=== PATIENT | male | born 1960 | race Asian ===

== ENCOUNTER 2018-09-13 22:59 | Emergency (ER) | payer OTHER ==
[~2018-09-13] VITALS: Ht 162.6 cm; Wt 59.0 kg
[2018-09-14] MEDS ORDERED: IPRATROPIUM BROM 0.5 MG/2.5ML INH SOL NEB ONE (01:00)
[2018-09-14] MEDS ORDERED: ALBUTEROL SULF 2.5 MG/0.5ML(0.5%) NEB SOLN NEB ONE (01:00)
[2018-09-14] MEDS ORDERED: PROMETHAZINE W/CODEINE 5 ML ORAL SYRUP PO ONE (01:00)
[2018-09-14 01:59] VITALS: BP 109/73
== END 2018-09-14 02:05 | disposition home or self-care (01) ==
LOC: ER 23:02
DX: J40 Bronchitis, not specified as acute or chronic (principal); J06.9 Acute upper respiratory infection, unspecified; R11.0 Nausea
CPT/HCPCS: 71046; 94640; 99283; J7611; J7644

== ENCOUNTER 2018-09-16 16:51 | Emergency (ER) | payer OTHER ==
[~2018-09-16] VITALS: Ht 162.6 cm; Wt 59.0 kg
[2018-09-16 19:02] VITALS: BP 150/85
[2018-09-16] MEDS ORDERED: methylPREDNISolone SOD SUCC 125 MG/2 ML VL IM ONE (19:15)
[2018-09-16] MEDS ORDERED: cefTRIAXone SOD 1,000 MG VL IM ONE (19:15)
== END 2018-09-16 19:42 | disposition home or self-care (01) ==
LOC: ER 16:54
DX: J06.9 Acute upper respiratory infection, unspecified (principal)
CPT/HCPCS: 96372; 99283; J0696; J2930

== ENCOUNTER 2022-08-23 10:49 | Emergency (ER) | payer OTHER ==
[~2022-08-23] VITALS: Ht 157.5 cm; Wt 59.0 kg
[2022-08-23] MEDS ORDERED: HYDROcodone-ACET 10/325MG TAB PO ONE (11:45)
[2022-08-23 11:59] LABS: Basophils # (auto) 0 10 ^3/uL (0-0.2); Basophils % (auto) 0.5 % (0.0-2.0); Eosinophils # (auto) 0.4 10 ^3/uL (0-0.8); Eosinophils % (auto) 5.6 % (0.0-7.0); Hemoglobin 16.3 g/dL (13.5-17.5); Lymphocytes # (auto) 1.2 10 ^3/uL (0.4-5.4); Lymphocytes % (auto) 16.9 % (10.0-50.0); Mean Corpuscular Hemoglobin 30.1 pg (28.0-32.0); Mean Corpuscular Hgb Conc. 34.6 g/dL (32.0-36.0); Mean Corpuscular Volume 86.9 fL (80.0-100.0); Monocytes # (auto) 0.5 10 ^3/uL (0-1.3); Neutrophils # (auto) 4.8 10 ^3/uL (1.6-8.6); Nucleated Red Blood Cells % 0.8 %; Red Cell Distribution Width 13.2 % (11.8-14.3); White Blood Cell 6.9 10^3/uL (4.4-10.8)
[2022-08-23 12:11] LABS: Albumin 3.7 g/dL (3.4-5.0); Calcium 9.2 mg/dL (8.5-10.1); Magnesium 2.6 mg/dL (1.6-2.6); Potassium 3.8 mmol/L (3.5-5.1)
[2022-08-23 12:14] LABS: BUN/Creatinine Ratio 10.7 (10.0-20.0); Bilirubin, Total 0.5 mg/dL (0.2-1.0); CRP High Sensitivity 0.07 mg/dL (< 0.3); INR 0.92 (0.9-1.15); Partial Thromboplastin Time 26.4 sec (24.6-33.4); Total Protein 7.7 g/dL (6.4-8.2)
[2022-08-23] MEDS ORDERED: IOHEXOL 350 MG/ML 100ML IJ ONE (12:46)
[2022-08-23] MEDS ORDERED: METO-281 PO (14:28)
[2022-08-23 15:00] VITALS: BP 117/66
== END 2022-08-23 15:40 | disposition home or self-care (01) ==
LOC: ER 10:49
DX: G44.209 Tension-type headache, unspecified, not intractable (principal); R06.02 Shortness of breath; Z79.01 Long term (current) use of anticoagulants; Z79.899 Other long term (current) drug therapy
CPT/HCPCS: 36415; 70450; 70496; 71045; 80053; 82962; 83735; 83880; 84484; 85025; 85610; 85652; 85730; 86141; 93005; 99285; Q9967

== ENCOUNTER 2023-02-27 15:49 | Emergency (ER) | payer OTHER ==
[~2023-02-27] VITALS: Ht 162.6 cm; Wt 55.3 kg
[~2023-02-27 15:49] MED LIST: METO-281 PO
[2023-02-27 17:24] VITALS: BP 130/76; PULSE 69; RESP 20; TEMP 97.3; O2SAT 97
[2023-02-27] MEDS ORDERED: BENZ200C64 PO (17:43)
[2023-02-27] MEDS ORDERED: ALBU108A5 IN (17:43)
[2023-02-27] MEDS ORDERED: METH4PAK PO (17:43)
[2023-02-27] MEDS ORDERED: IPRATROPIUM BROM 0.5 MG/2.5ML INH SOL NEB ONE (17:45)
[2023-02-27] MEDS ORDERED: ALBUTEROL SULF 2.5 MG/0.5ML(0.5%) NEB SOLN NEB ONE (17:45)
== END 2023-02-27 18:02 | disposition home or self-care (01) ==
LOC: ER 15:49
DX: J20.9 Acute bronchitis, unspecified (principal); R06.02 Shortness of breath; R07.89 Other chest pain
CPT/HCPCS: 71046; 94640; 99283; J7644

== ENCOUNTER 2023-09-14 19:06 | Emergency (ER) | payer OTHER ==
[~2023-09-14] VITALS: Ht 160 cm; Wt 59.0 kg
[~2023-09-14 19:06] MED LIST changes: +ALBU108A5 IN; +BENZ200C64 PO; +METH4PAK PO
[2023-09-14 19:50] VITALS: BP 151/90; PULSE 79; RESP 18; O2SAT 98
[2023-09-14 22:03] LABS: Chloride 103 mmol/L (98-107); Potassium 3.9 mmol/L (3.5-5.1); Sodium 138 mmol/L (136-145)
[2023-09-14 22:04] LABS: Anion Gap 7 (5-15); Calcium 10.2 mg/dL (8.7-10.4); Carbon Dioxide 28 mmol/L (20-30)
[2023-09-14 22:09] LABS: BUN/Creatinine Ratio 12.2 (10.0-20.0); Blood Urea Nitrogen 16 mg/dL (9-23); Glucose 103 mg/dL (74-106)
[2023-09-14 22:13] LABS: Basophils # (auto) 0.1 10 ^3/uL (0-0.2); Basophils % (auto) 0.9 % (0.0-2.0); Eosinophils # (auto) 0.3 10 ^3/uL (0-0.8); Eosinophils % (auto) 3.5 % (0.0-7.0); Hematocrit 49.4 % (41.0-53.0); Hemoglobin 16.5 g/dL (13.5-17.5); Lymphocytes # (auto) 1.5 10 ^3/uL (0.4-5.4); Lymphocytes % (auto) 18.4 % (10.0-50.0); Mean Corpuscular Hemoglobin 29.9 pg (28.0-32.0); Mean Corpuscular Hgb Conc. 33.4 g/dL (32.0-36.0); Mean Corpuscular Volume 89.6 fL (80.0-100.0); Monocytes # (auto) 0.5 10 ^3/uL (0-1.3); Monocytes % (auto) 6.6 % (0.0-12.0); Neutrophils # (auto) 5.8 10 ^3/uL (1.6-8.6); Neutrophils % (auto) 70.6 % (37.0-80.0); Nucleated Red Blood Cells % 0.1 %; Red Blood Cells 5.51 10^6/uL (4.5-5.90); Red Cell Distribution Width 13.5 % (11.8-14.3); White Blood Cell 8.3 10^3/uL (4.4-10.8)
[2023-09-14 23:34] LABS: Urine Bacteria None Seen /hpf (None Seen)
[2023-09-14 23:49] LABS: Urine Blood Negative /uL (Negative); Urine Clarity Clear (Clear); Urine Color Light-Yellow (Yellow); Urine Protein, UAD Negative (Negative); Urine Specific Gravity 1.015 (1.001-1.035); Urine Urobilinogen Normal (Negative); Urine WBC <1 /hpf (0 - 3)
== END 2023-09-15 00:20 | disposition left against medical advice (07) ==
LOC: ER 19:06
DX: I10 Essential (primary) hypertension (principal); R30.0 Dysuria; R35.0 Frequency of micturition; E78.5 Hyperlipidemia, unspecified; F41.9 Anxiety disorder, unspecified; Z79.899 Other long term (current) drug therapy
CPT/HCPCS: 36415; 71045; 80048; 81001; 83880; 84484; 85025

== ENCOUNTER 2024-06-17 15:19 | Emergency (ER) | payer OTHER ==
[~2024-06-17] VITALS: Ht 160 cm; Wt 59.0 kg
--- NOTE | 2024-06-17 15:26 | ED.PDOC ---
History of Present Illness HPI Comments 63-year-old male brought in by EMS presents with a chief complaint of headache, nausea, and vomiting. Patient states that this headache began x 45 minutes ago. Patient reported to EMS that he gets headaches like this about every 2 weeks for the last year. Patient mentions that he has seen his PMD for this, but "it gets me nowhere". Patient reported to EMS that these headaches are interfering with his daily life. No other symptoms or modifying factors present at this time. Time Seen by MD: 15:19 Primary Care Provider: Juliette Reviewed Notes: Nurses Notes, Medications, Allergies Allergies: Coded Allergies: NO KNOWN ALLERGIES (Unverified , 12/28/14) Home Meds Active Scripts Albuterol Sulfate (Albuterol Sulfate Hfa) 108 Mcg/Act Aer, 108 MCG IN TID, #90 AER Prov:EMA QUARLES 02/27/23 Methylprednisolone (Medrol Dosepak) 4 Mg David, 4 MG PO UD, #21 TAB UAD Prov:EMA QUARLES 02/27/23 Benzonatate (Benzonatate) 200 Mg Cap, 1 CAP PO TID, #30 CAP Prov:EMA QUARLES 02/27/23 Metoclopramide Hcl (Reglan) 10 Mg Tab, 10 MG PO TIDP PRN for 10 Days, #30 TAB Prov:BERNABE GARCIA DO 08/23/22 Information Source: Patient, Emergency Med Personnel Mode of Arrival: EMS Severity: Moderate Timing: Minutes Duration: Since onset Prehospital treatment: None Past Medical History PAST MEDICAL HISTORY: Anxiety, High Lipids, HTN Surgical History: Denies all surgeries Family History Family History: Reviewed,noncontributory to illness Social History Smoker: Non-Smoker Alcohol: Denies ETOH Use Drugs: Denies Drug Use Lives In: Home Constitutional: denies: chills, diaphoresis, fatigue, fever, malaise, sweats, weakness, others EENTM: denies: blurred vision, double vision, ear bleeding, ear discharge, ear drainage, ear pain, ear ringing, eye pain, eye redness, hearing loss, mouth pain, mouth swelling, nasal discharge, nose bleeding, nose congestion, nose pain, photophobia, tearing, throat pain, throat swelling, voice changes, others Respiratory: denies: cough, hemoptysis, orthopnea, SOB at rest, shortness of breath, SOB with excertion, stridor, wheezing, others Cardiovascular: denies: chest pain, dizzy spells, diaphoresis, Dyspnea on exertion, edema, irregular heart beat, left arm pain, lightheadedness, palpitations, PND, syncope, others Gastrointestinal: reports: nausea, vomiting; denies: abdomen distended, abdominal pain, blood streaked bowels, constipated, diarrhea, dysphagia, difficulty swallowing, hematemesis, melena, poor appetite, poor fluid intake, rectal bleeding, rectal pain, others Genitourinary: denies: burning, dysuria, flank pain, frequency, hematuria, incontinence, penile discharge, penile sore, pain, testicle pain, testicle swelling, urgency, others Neurological: reports: headache; denies: dizziness, fainting, left sided numbness, left sided weakness, numbness, paresthesia, pre-existing deficit, right sided numbness, right sided weakness, seizure, speech problems, tingling, tremors, weakness, others Musculoskeletal: denies: back pain, gout, joint pain, joint swelling, muscle pain, muscle stiffness, neck pain, others Integumetry: denies: bruises, change in color, change in hair/nails, dryness, laceration, lesions, lumps, rash, wounds, others Allergic/Immunocompromised: denies: Difficulty Healing, Frequent Infections, Hives, Itching, others Hematologic/Lymphatic: denies: anemia, blood clots, easy bleeding, easy bruising, swollen glands, others Endocrine: denies: excessive hunger, excessive sweating, excessive thirst, excessive urination, flushing, intolerance to cold, intolerance to heat, unexplained weight gain, unexplained weight loss, others Psychiatric: denies: anxiety, bipolar disorder, depression, hopeless, panic disorder, schizophrenia, sleepless, suicidal, others All Other Systems: Reviewed and Negative Physical Exam General Appearance: No Apparent Distress HEENT: Normal ENT Inspection, Pharynx Normal, TMs Normal Neck: Full Range of Motion, Non-Tender, Normal, Normal Inspection Respiratory: Chest Non-Tender, Lungs Clear, No Accessory Muscle Use, No Respiratory Distress, Normal Breath Sounds Cardiovascular: No Edema, No JVD, No Murmur, No Gallop, Normal Peripheral Pulses, Regular Rate/Rhythm Breast Exam: Deferred Gastrointestinal: No Organomegaly, Non Tender, No Pulsatile Mass, Normal Bowel Sounds, Soft Genitalia: Deferred Pelvic: Deferred Rectal: Deferred Extremities: No calf tenderness, Normal capillary refill, Normal inspection, Normal range of motion, Non-tender, No pedal edema Musculoskeletal : Apperance: Normal Neurologic: Alert, manager process excellence II-XII nml as Tested, No Motor Deficits, Normal Affect, Normal Mood, No Sensory Deficits Cerebellar Function: Normal Reflexes: Normal Skin: Dry, Normal Color, Warm Lymphatic: No Adenopathy Was a procedure done? Was a procedure done?: No Differential Dx Considerations may include: Tension headache, migraine headache, generalized weakness X-Ray, Labs, Meds, VS Vital Signs Date Time Temp Pulse Resp B/P (MAP) Pulse Ox O2 Delivery O2 Flow Rate FiO2 06/17/24 16:53 98.4 80 16 128/78 (95) 98 Lab Test 06/17/24 16:24 Range/Units White Blood Count 5.2 4.4-10.8 10^3/uL Red Blood Count 4.72 4.5-5.90 10^6/uL Hemoglobin 14.6 13.5-17.5 g/dL Hematocrit 43.0 41.0-53.0 % Mean Corpuscular Volume 91.1 80.0-100.0 fL Mean Corpuscular Hemoglobin 30.9 28.0-32.0 pg Mean Corpuscular Hemoglobin Concent 33.9 32.0-36.0 g/dL Red Cell Distribution Width 13.1 11.8-14.3 % Platelet Count 256 140-450 10^3/uL Mean Platelet Volume 7.0 6.9-10.8 fL Neutrophils (%) (Auto) 68.1 37.0-80.0 % Lymphocytes (%) (Auto) 19.6 10.0-50.0 % Monocytes (%) (Auto) 7.6 0.0-12.0 % Eosinophils (%) (Auto) 4.2 0.0-7.0 % Basophils (%) (Auto) 0.5 0.0-2.0 % Neutrophils # (Auto) 3.5 1.6-8.6 10 ^3/uL Lymphocytes # (Auto) 1.0 0.4-5.4 10 ^3/uL Monocytes # (Auto) 0.4 0-1.3 10 ^3/uL Eosinophils # (Auto) 0.2 0-0.8 10 ^3/uL Basophils # (Auto) 0 0-0.2 10 ^3/uL Nucleated Red Blood Cells 0.0 % Sodium Level 139 136-145 mmol/L Potassium Level 3.9 3.5-5.1 mmol/L Chloride Level 105 98-107 mmol/L Carbon Dioxide Level 28 20-31 mmol/L Anion Gap 6 5-15 Blood Urea Nitrogen 17 9-23 mg/dL Creatinine 1.04 0.700-1.30 mg/dL Glomerular Filtration Rate Calc 80 >90 mL/min BUN/Creatinine Ratio 16.3 10.0-20.0 Serum Glucose 113 H 74-106 mg/dL Calcium Level 9.9 8.7-10.4 mg/dL Head CT Scan Impression: No acute intracranial process The patient's CBC and chemistry panel are within normal limits The patient was being discharged The patient will follow up with the primary care doctor The patient will return to the emergency department's condition worsens. Images Reviewed?: Images reviewed and evaluated by me Time of 1ST Reevaluation: 15:49 Reevaluation 1ST: Unchanged Time of 2ND Reevaluation: 17:56 Reevaluation 2ND: Improved Patient Education/Counseling: Diagnosis, Treatment, Prognosis, Need For Follow Up Family Education/Counseling: Diagnosis, Treatment, Prognosis, Need For Follow Up Departure 1 Departure Time of Disposition: 17:56 Impression: Primary Impression: Tension headache Disposition: 01 HOME / SELF CARE / HOMELESS Condition: Fair Discharged With: Self Critical Care Note Critical Care Time?: No Stability Stability form required: No Heart Score Heart Score: Heart Score Response (Comments) Value History N/A 0 EKG N/A 0 Age N/A 0 Risk Factors N/A 0 Troponin N/A 0 Total 0 I personally scribed for KATELIN JAMES MD ([email or web address]) on 06/17/24 at 15:25. Electronically submitted by Ezekiel Lay ([email or web address]). I personally scribed for KATELIN JAMES MD ([email or web address]) on 06/17/24 at 16:42. Electronically submitted by Ezekiel Lay ([email or web address]). KATELIN JAMES MD Jun 17, 2024 15:25
--- NOTE | 2024-06-17 16:30 | DVH ---
EXAM: CT HEAD WITHOUT CONTRAST HISTORY: RAYGOZA COMPARISON: CT STROKE CTH on DOS: 08/23/22 TECHNIQUE: Axial images of the head were obtained and reformatted in coronal and sagittal planes. All CT scans at this medical facility are performed using dose modulation techniques as appropriate t o a performed exam including the following: Automated exposure control was utilized; adjustment of th e MA and/or KV according to patient size; and use of iterative reconstruction technique. CT Dose: CTDI volume is 54 mGy. Dose-length product is 968 mGy*cm FINDINGS: There is no evidence of acute intracranial hemorrhage, mass, mass effect midline shift. There is no h ydrocephalus or extra-axial fluid collection. [place]-white matter differentiation is maintained. The visualized paranasal sinuses are clear. The calvarium is intact. IMPRESSION: 1. No acute intracranial process. HS:Y
[2024-06-17 16:50] LABS: Basophils # (auto) 0 10 ^3/uL (0-0.2); Basophils % (auto) 0.5 % (0.0-2.0); Eosinophils # (auto) 0.2 10 ^3/uL (0-0.8); Eosinophils % (auto) 4.2 % (0.0-7.0); Hemoglobin 14.6 g/dL (13.5-17.5); Lymphocytes % (auto) 19.6 % (10.0-50.0); Mean Corpuscular Hemoglobin 30.9 pg (28.0-32.0); Mean Corpuscular Hgb Conc. 33.9 g/dL (32.0-36.0); Mean Corpuscular Volume 91.1 fL (80.0-100.0); Monocytes # (auto) 0.4 10 ^3/uL (0-1.3); Monocytes % (auto) 7.6 % (0.0-12.0); Neutrophils # (auto) 3.5 10 ^3/uL (1.6-8.6); Neutrophils % (auto) 68.1 % (37.0-80.0); Platelet Count (auto) 256 10^3/uL (140-450); Red Blood Cells 4.72 10^6/uL (4.5-5.90); Red Cell Distribution Width 13.1 % (11.8-14.3); White Blood Cell 5.2 10^3/uL (4.4-10.8)
[2024-06-17 16:54] LABS: Chloride 105 mmol/L (98-107); Potassium 3.9 mmol/L (3.5-5.1); Sodium 139 mmol/L (136-145)
[2024-06-17 16:55] LABS: Anion Gap 6 (5-15); Calcium 9.9 mg/dL (8.7-10.4); Carbon Dioxide 28 mmol/L (20-31)
[2024-06-17 17:00] LABS: BUN/Creatinine Ratio 16.3 (10.0-20.0); Blood Urea Nitrogen 17 mg/dL (9-23)
[2024-06-17 17:02] LABS: Glucose 113 mg/dL (74-106)
[2024-06-17] MEDS: ACETAMINOPHEN 325 MG TAB PO ONE (19:03)
[2024-06-17 19:13] VITALS: BP 118/78; PULSE 70; RESP 18; TEMP 98; O2SAT 95
== END 2024-06-17 19:19 | disposition home or self-care (01) ==
LOC: ER 15:19 → EDBD 15:19 → ER 19:19
DX: G44.209 Tension-type headache, unspecified, not intractable (principal); F41.9 Anxiety disorder, unspecified; E78.5 Hyperlipidemia, unspecified; I10 Essential (primary) hypertension; R11.2 Nausea with vomiting, unspecified
CPT/HCPCS: 36415; 70450; 80048; 85025

== ENCOUNTER 2024-06-19 03:12 | Inpatient (IN) | payer OTHER ==
[~2024-06-19] VITALS: Ht 165.1 cm; Wt 60.2 kg
[2024-06-19] VITALS (9 sets, daily range): BP systolic 95–115; BP diastolic 52–61; PULSE 64–80; RESP 12–18; TEMP 98–98.7; O2SAT 93–98
[2024-06-19] MEDS: SODIUM CHLORIDE 0.9% 1,000 ML IV ONE (03:45)
--- NOTE | 2024-06-19 03:46 | ED.PDOC ---
GI ASSESSMENT HPI Comments 63-year-old male came to the ER due to GI bleed. Patient has been having epigastric abdominal pain since yesterday, associated with over 10 episodes blackish stools. No nausea or vomiting noted. Patient then started becoming very weak and short of breath. Chief Complaint: GI bleed Time Seen by MD: 03:45 Primary Care Provider: Juliette Crandall Notes: Nurses Notes Allergies: Coded Allergies: NO KNOWN ALLERGIES (Unverified , 12/28/14) Home Meds Active Scripts Albuterol Sulfate (Albuterol Sulfate Hfa) 108 Mcg/Act Aer, 108 MCG IN TID, #90 AER Prov:EMA QUARLES 02/27/23 Methylprednisolone (Medrol Dosepak) 4 Mg David, 4 MG PO UD, #21 TAB UAD Prov:EMA QUARLES 02/27/23 Benzonatate (Benzonatate) 200 Mg Cap, 1 CAP PO TID, #30 CAP Prov:EMA QUARLES 02/27/23 Metoclopramide Hcl (Reglan) 10 Mg Tab, 10 MG PO TIDP PRN for 10 Days, #30 TAB Prov:BERNABE GARCIA DO 08/23/22 Information Source: Patient Mode of Arrival: Ambulatory Timing: Hours Duration: Since onset Prehospital treatment: None Quality: Aching, Cramping Vomitus: None Stool: Black Severity: Moderate Recent: None Recent Hx of: None Pain Location: Epigastric Associated sign and symptoms: Melena, Abdominal Pain Past Medical History PAST MEDICAL HISTORY: Anxiety, High Lipids, HTN Surgical History: Denies all surgeries Family History Family History: Reviewed,noncontributory to illness Social History Smoker: Non-Smoker Alcohol: Denies ETOH Use Drugs: Denies Drug Use Lives In: Home Constitutional: reports: fatigue, weakness; denies: chills, diaphoresis, fever, malaise, sweats, others EENTM: denies: blurred vision, double vision, ear bleeding, ear discharge, ear drainage, ear pain, ear ringing, eye pain, eye redness, hearing loss, mouth lazaro n, mouth swelling, nasal discharge, nose bleeding, nose congestion, nose pain, photophobia, tearing, throat pain, throat swelling, voice changes, others Respiratory: reports: SOB at rest, shortness of breath, SOB with excertion; denies: cough, hemoptysis, orthopnea, stridor, wheezing, others Cardiovascular: denies: chest pain, dizzy spells, diaphoresis, Dyspnea on exertion, edema, irregular heart beat, left arm pain, lightheadedness, palpitations, PND, syncope, others Gastrointestinal: reports: abdominal pain, melena; denies: abdomen distended, blood streaked bowels, constipated, diarrhea, dysphagia, difficulty swallowing, hematemesis, nausea, poor appetite, poor fluid intake, rectal bleeding, rectal pain, vomiting, others Genitourinary: denies: burning, dysuria, flank pain, frequency, hematuria, incontinence, penile discharge, penile sore, pain, testicle pain, testicle swelling, urgency, others Neurological: denies: dizziness, fainting, headache, left sided numbness, left sided weakness, numbness, paresthesia, pre-existing deficit, right sided numb ness, right sided weakness, seizure, speech problems, tingling, tremors, weakness, others Musculoskeletal: denies: back pain, gout, joint pain, joint swelling, muscle pain, muscle stiffness, neck pain, others Integumetry: denies: bruises, change in color, change in hair/nails, dryness, laceration, lesions, lumps, rash, wounds, others Allergic/Immunocompromised: denies: Difficulty Healing, Frequent Infections, Hives, Itching, others Hematologic/Lymphatic: denies: anemia, blood clots, easy bleeding, easy bruising, swollen glands, others Endocrine: denies: excessive hunger, excessive sweating, excessive thirst, excessive urination, flushing, intolerance to cold, intolerance to heat, unexplained weight gain, unexplained weight loss, others Psychiatric: denies: anxiety, bipolar disorder, depression, hopeless, panic disorder, schizophrenia, sleepless, suicidal, others Physical Exam General Appearance: No Apparent Distress, Normal HEENT: Normal ENT Inspection, Pharynx Normal, TMs Normal Neck: Full Range of Motion, Non-Tender, Normal, Normal Inspection Respiratory: Chest Non-Tender, Lungs Clear, No Accessory Muscle Use, No Respiratory Distress, Normal Breath Sounds Cardiovascular: No Edema, No JVD, No Murmur, No Gallop, Normal Peripheral Pulses, Regular Rate/Rhythm Breast Exam: Deferred Gastrointestinal: No Organomegaly, Non Tender, No Pulsatile Mass, Normal Bowel Sounds, Soft Genitalia: Deferred Pelvic: Deferred Rectal: Deferred Extremities: No calf tenderness, Normal capillary refill, Normal inspection, Normal range of motion, Non-tender, No pedal edema Musculoskeletal : Apperance: Normal Neurologic: Alert, knit goods press hand II-XII nml as Tested, No Motor Deficits, Normal Affect, Normal Mood, No Sensory Deficits Cerebellar Function: Normal Reflexes: Normal Skin: Dry, Normal Color, Warm Lymphatic: No Adenopathy Was a procedure done? Was a procedure done?: No GI differential Dx Differential Diagnosis: Diverticular disease, Gastritis/PUD, Gastroenteritis, G I hemorrhage, Inflammatory BD, Ischemic Bowel, UTI, Electrolyte Imbalance, Anemia X-Ray, Labs, Meds, VS Vital Signs Date Time Temp Pulse Resp B/P (MAP) Pulse Ox O2 Delivery O2 Flow Rate FiO2 06/19/24 04:25 80 12 98 Room Air* 0 21 06/19/24 04:21 98.4 81 20 124/69 (87) 96 98.4 06/19/24 04:08 80 06/19/24 03:50 76 06/19/24 03:42 98.4 81 16 121/74 (90) 92 Lab Test 06/19/24 03:37 Range/Units White Blood Count 11.1 #H 4.4-10.8 10^3/uL Red Blood Count 4.77 4.5-5.90 10^6/uL Hemoglobin 15.1 13.5-17.5 g/dL Hematocrit 43.3 41.0-53.0 % Mean Corpuscular Volume 90.8 80.0-100.0 fL Mean Corpuscular Hemoglobin 31.6 28.0-32.0 pg Mean Corpuscular Hemoglobin Concent 34.8 32.0-36.0 g/dL Red Cell Distribution Width 13.3 11.8-14.3 % Platelet Count 261 140-450 10^3/uL Mean Platelet Volume 7.0 6.9-10.8 fL Neutrophils (%) (Auto) 87.9 H 37.0-80.0 % Lymphocytes (%) (Auto) 5.1 L 10.0-50.0 % Monocytes (%) (Auto) 3.5 0.0-12.0 % Eosinophils (%) (Auto) 2.9 0.0-7.0 % Basophils (%) (Auto) 0.6 0.0-2.0 % Neutrophils # (Auto) 9.7 H 1.6-8.6 10 ^3/uL Lymphocytes # (Auto) 0.6 0.4-5.4 10 ^3/uL Monocytes # (Auto) 0.4 0-1.3 10 ^3/uL Eosinophils # (Auto) 0.3 0-0.8 10 ^3/uL Basophils # (Auto) 0.1 0-0.2 10 ^3/uL Nucleated Red Blood Cells 0.0 % Prothrombin Time 10.5 9.3-11.8 sec Prothrombin Time INR 0.99 0.9-1.15 Sodium Level 137 136-145 mmol/L Potassium Level 3.8 3.5-5.1 mmol/L Chloride Level 106 98-107 mmol/L Carbon Dioxide Level 23 20-31 mmol/L Anion Gap 8 5-15 Blood Urea Nitrogen 11 9-23 mg/dL Creatinine 1.05 0.700-1.30 mg/dL Glomerular Filtration Rate Calc 79 >90 mL/min BUN/Creatinine Ratio 10.5 10.0-20.0 Serum Glucose 114 H 74-106 mg/dL Lactic Acid Level 1.5 0.4-2.0 mmol/L Calcium Level 9.5 8.7-10.4 mg/dL Current Medications Medications (Trade) Dose Ordered Sig/Rae Route Start Time Stop Time Status Last Admin Sodium Chloride 1,000 ml @ 1,000 mls/hr Q1H ONCE IV 06/19/24 03:45 06/19/24 04:44 DC 06/19/24 03:45 Ondansetron HCl (Zofran) 4 mg ONCE ONCE IV 06/19/24 03:45 06/19/24 03:46 DC 06/19/24 04:15 Time of 1ST Reevaluation: 03:38 Reevaluation 1ST: Unchanged Patient Education/Counseling: Diagnosis, Treatment Family Education/Counseling: Diagnosis, Treatment Departure 1 Departure Time of Disposition: 05:09 (Patient presented with abdominal pain that was c oncerning for possible appendicits, gastritis, cholecystitis, colitis, gastroenteritis, sbo, or orther possible surgical emergency. Data: 1. I ordered and reviewed the result of at least 3 labs including a CBC, BMP, and Urinalysis. 2. I independently interpreted the following tests: CT Abdoment and Pelvis is concerning for lumbar issues .Risk:This patient has a high risk of morbidity due to further diagnostic testing or treatment and may suffer from an acute abdominal process disorder. Workup reveals enlarged prostate in concerning for lumbar spine issues however patient has bright red blood per rectum as well as melena and patient should be admitted for further workup. and possible expert consultation. ) Impression: Primary Impression: Melena Additional Impressions: Intractable abdominal pain Generalized abdominal pain Disposition: ADMITTED INPATIENT Admit to: Med Surg Condition: Serious Critical Care Note Critical Care Time?: Yes (35 min-critical care time only) Critical care comment: Intractable abdominal pain Authorized and Performed by: Niyah Vinson MD Total critical care time: Approximately 39 minutes Due to a high probability of clinically significant, life threatening deterioration, the patient required my highest level of preparedness to intervene emergently and I personally spent this critical care time directly and personally managing the patient. This critical care time included obtaining a history; examining the patient; pulse oximetry; ordering and review of studies; arranging urgent treatment with development of a management plan; evaluation of patient's response to treatment; frequent reassessment; and, discussions with other providers. This critical care time was performed to assess and manage the high probability of imminent, life-threatening deterioration that could result in multi-organ failure. It was exclusive of separately billable procedures and treating other patients and teaching time. Please see my other sections and the rest of the note for further information on patient assessment and treatment. Stability Stability form required: No Heart Score Heart Score: Heart Score Response (Comments) Value History N/A 0 EKG N/A 0 Age N/A 0 Risk Factors N/A 0 Troponin N/A 0 Total 0 I personally scribed for NIYAH VINSON MD ([email or web address]) on 06/19/24 at 03:46. Electronically submitted by Jason Ram ([email or web address]). NIYAH VINSON MD Jun 19, 2024 03:46
[2024-06-19 04:06] LABS: Basophils # (auto) 0.1 10 ^3/uL (0-0.2); Basophils % (auto) 0.6 % (0.0-2.0); Eosinophils # (auto) 0.3 10 ^3/uL (0-0.8); Eosinophils % (auto) 2.9 % (0.0-7.0); Hematocrit 43.3 % (41.0-53.0); Hemoglobin 15.1 g/dL (13.5-17.5); Lymphocytes # (auto) 0.6 10 ^3/uL (0.4-5.4); Lymphocytes % (auto) 5.1 % (10.0-50.0); Mean Corpuscular Hemoglobin 31.6 pg (28.0-32.0); Mean Corpuscular Hgb Conc. 34.8 g/dL (32.0-36.0); Mean Corpuscular Volume 90.8 fL (80.0-100.0); Monocytes # (auto) 0.4 10 ^3/uL (0-1.3); Monocytes % (auto) 3.5 % (0.0-12.0); Neutrophils # (auto) 9.7 10 ^3/uL (1.6-8.6); Neutrophils % (auto) 87.9 % (37.0-80.0); Platelet Count (auto) 261 10^3/uL (140-450); Red Blood Cells 4.77 10^6/uL (4.5-5.90); Red Cell Distribution Width 13.3 % (11.8-14.3); White Blood Cell 11.1 10^3/uL (4.4-10.8)
[2024-06-19 04:10] LABS: Chloride 106 mmol/L (98-107); Potassium 3.8 mmol/L (3.5-5.1); Sodium 137 mmol/L (136-145)
[2024-06-19 04:11] LABS: Anion Gap 8 (5-15); Calcium 9.5 mg/dL (8.7-10.4); Carbon Dioxide 23 mmol/L (20-31)
[2024-06-19 04:12] LABS: INR 0.99 (0.9-1.15); Prothrombin Time 10.5 sec (9.3-11.8)
[2024-06-19] MEDS: ONDANSETRON HCL 4 MG/2 ML VIAL IV ONE (04:15)
[2024-06-19 04:16] LABS: BUN/Creatinine Ratio 10.5 (10.0-20.0); Blood Urea Nitrogen 11 mg/dL (9-23)
[2024-06-19 04:17] LABS: Glucose 114 mg/dL (74-106)
[2024-06-19] MEDS: IOHEXOL 300 MG/ML 100ML BOTTLE IJ ONE (04:24)
--- NOTE | 2024-06-19 05:08 | DVH ---
EXAM: CT CT AB PEL WITH IV CON ONLY HISTORY: abdominal pain, melena COMPARISON: None TECHNIQUE: Helical CT images of the abdomen and pelvis were performed with IV contrast. Sagittal and coronal r eformatted images were obtained. This CT exam was performed using 1 or more of the following dose re duction techniques: Automated exposure control, adjustment of the mA and/or kv according to patient s ize, or the use of iterative reconstruction techniques. Radiation Dose Information: CT Dose: CTDI volume is 6.44 mGy. Dose-length product is 371.37 mGy*cm FINDINGS: CT abdomen: There is bilateral gynecomastia. The lung bases are clear. The heart is borderline enlar ged. There are coronary artery calcifications. The liver, spleen, gallbladder, pancreas, kidneys, and adrenal glands are unremarkable. No abdominal aortic aneurysm or dissection. There are atherosclero tic calcifications of the abdominal aorta and major branches. CT pelvis: No abnormal bowel dilatation, free air, or free fluid. The appendix and urinary bladder a re unremarkable. There is a small fatty right inguinal indirect hernia. The Prostate is moderately e nlarged. There is advanced lumbar degenerative disc disease and facet arthropathy with multilevel sig nificant neural foraminal stenosis bilaterally. IMPRESSION: 1. Coronary artery disease and atherosclerotic vascular disease in the abdomen and pelvis. 2. Moderate prostatic enlargement. 3. Advanced lumbar degenerative disc disease and facet arthropathy with multilevel significant neural foraminal stenosis bilaterally. This would be better characterized with noncontrast MRI of the lumba r spine on an outpatient nonemergent basis, especially if the patient complains of lower extremity ra dicular symptoms. 4. No evidence of bowel obstruction, acute appendicitis, or other acute process in the abdomen or pel vis.
[2024-06-19] MEDS ORDERED: DOCUSATE SOD 100 MG CAP PO PRN (08:00)
[2024-06-19] MEDS ORDERED: HYDROcodone-ACET 5/325MG TAB PO PRN (08:00)
[2024-06-19] MEDS ORDERED: ALBUTEROL SULF 2.5 MG/0.5ML(0.5%) NEB SOLN NEB PRN (08:00)
[2024-06-19] MEDS ORDERED: ONDANSETRON HCL 4 MG/2 ML VIAL IV PRN (08:00)
[2024-06-19] MEDS ORDERED: ACETAMINOPHEN 325 MG TAB PO PRN (08:00)
--- NOTE | 2024-06-19 08:06 | DVHHP2 ---
Admitting Diagnosis: Abdominal pain History of Present Illness 63-year-old male came to the ER due to GI bleed. Patient has been having epigastric abdominal pain since yesterday, associated with over 10 episodes blackish stools. No nausea or vomiting noted. Patient then started becoming very weak and short of breath. PAST MEDICAL HISTORY: Anxiety, High Lipids, HTN Surgical History: Denies all surgeries Family History Family History: Reviewed,noncontributory to illness Social History Smoker: Non-Smoker Alcohol: Denies ETOH Use Drugs: Denies Drug Use Lives In: Home Allergies: Coded Allergies: NO KNOWN ALLERGIES (Unverified , 12/28/14) Home Meds Active Scripts Albuterol Sulfate (Albuterol Sulfate Hfa) 108 Mcg/Act Aer, 108 MCG IN TID, #90 AER Prov:EMA QUARLES 02/27/23 Methylprednisolone (Medrol Dosepak) 4 Mg David, 4 MG PO UD, #21 TAB UAD Prov:EMA QUARLES 02/27/23 Benzonatate (Benzonatate) 200 Mg Cap, 1 CAP PO TID, #30 CAP Prov:EMA QUARLES 02/27/23 Metoclopramide Hcl (Reglan) 10 Mg Tab, 10 MG PO TIDP PRN for 10 Days, #30 TAB Prov:BERNABE GARCIA DO 08/23/22 Current Medications Current Medications Medications (Trade) Dose Ordered Sig/Rae Route PRN Reason Start Time Stop Time Status Last Admin Pantoprazole Sodium (Protonix) 40 mg BID IV 06/19/24 10:00 UNV Sodium Chloride (Saline Lock Ns) 10 ml Q8HR IV 06/19/24 14:00 UNV Docusate Sodium (Colace Capsule) 100 mg BIDPRN PRN PO FOR CONSTIPATION 06/19/24 08:00 UNV Acetaminophen (Tylenol Tablet) 650 mg Q6HP PRN PO PAIN SCALE 1-3 OR TEMP>100.4 06/19/24 08:00 UNV Acetaminophen/ Hydrocodone Bitart ([place] 5/325MG Tab) 1 tab Q4HP PRN PO MODERATE PAIN (4-6 PAIN SCALE) 06/19/24 08:00 UNV Ondansetron HCl (Zofran) 4 mg Q4HP PRN IV NAUSEA / VOMITING 06/19/24 08:00 UNV Albuterol (Ventolin Medneb) 2.5 mg Q6H PRN NEB SHORTNESS OF BREATH 06/19/24 08:00 UNV Vital Signs Vital Signs Date Time Temp Pulse Resp B/P (MAP) Pulse Ox O2 Delivery O2 Flow Rate FiO2 06/19/24 07:33 97.4 80 24 124/69 (87) 93 97.4 06/19/24 07:33 Room Air* 0 21 Physical Exam Generally 63 years old male, well nourished well developed. No apparent distress HEENT-atraumatic normocephalic Heart-regular regular rate and rhythm Lungs clear to auscultate bilaterally Abdomen soft, nontender with a deep palpation, nondistended Musculoskeletal-no edema cyanosis Neuro-AO x3, no focal deficit Results Labs Test 06/19/24 03:37 Range/Units White Blood Count 11.1 #H 4.4-10.8 10^3/uL Red Blood Count 4.77 4.5-5.90 10^6/uL Hemoglobin 15.1 13.5-17.5 g/dL Hematocrit 43.3 41.0-53.0 % Mean Corpuscular Volume 90.8 80.0-100.0 fL Mean Corpuscular Hemoglobin 31.6 28.0-32.0 pg Mean Corpuscular Hemoglobin Concent 34.8 32.0-36.0 g/dL Red Cell Distribution Width 13.3 11.8-14.3 % Platelet Count 261 140-450 10^3/uL Mean Platelet Volume 7.0 6.9-10.8 fL Neutrophils (%) (Auto) 87.9 H 37.0-80.0 % Lymphocytes (%) (Auto) 5.1 L 10.0-50.0 % Monocytes (%) (Auto) 3.5 0.0-12.0 % Eosinophils (%) (Auto) 2.9 0.0-7.0 % Basophils (%) (Auto) 0.6 0.0-2.0 % Neutrophils # (Auto) 9.7 H 1.6-8.6 10 ^3/uL Lymphocytes # (Auto) 0.6 0.4-5.4 10 ^3/uL Monocytes # (Auto) 0.4 0-1.3 10 ^3/uL Eosinophils # (Auto) 0.3 0-0.8 10 ^3/uL Basophils # (Auto) 0.1 0-0.2 10 ^3/uL Nucleated Red Blood Cells 0.0 % Prothrombin Time 10.5 9.3-11.8 sec Prothrombin Time INR 0.99 0.9-1.15 Sodium Level 137 136-145 mmol/L Potassium Level 3.8 3.5-5.1 mmol/L Chloride Level 106 98-107 mmol/L Carbon Dioxide Level 23 20-31 mmol/L Anion Gap 8 5-15 Blood Urea Nitrogen 11 9-23 mg/dL Creatinine 1.05 0.700-1.30 mg/dL Glomerular Filtration Rate Calc 79 >90 mL/min BUN/Creatinine Ratio 10.5 10.0-20.0 Serum Glucose 114 H 74-106 mg/dL Lactic Acid Level 1.5 0.4-2.0 mmol/L Calcium Level 9.5 8.7-10.4 mg/dL Primary Diagnosis Chronic asymptomatic hypotension Melena resolving BPH Plan Patient states last bowel movement black stool began to turn brown. Patient states that he has chronic blood pressure around 90s to 100s. CT scan shows BPH severe lumbar degenerative disease. Recommend outpatient MRI lumbar NPO except meds GI consult for melena D5 LR for maintain saturation PPI 40 mg b.i.d. Antiemetic Pain control Holding off starting tamsulosin NPO of soft blood pressure. Patient is able to void Check CBC q.8 hours Monitor bowel movement for melena Full code SCD for DVT prophylaxis PPI for GI prophylaxis NPO except meds Plan discussed with: Patient Problems List: (1) Generalized abdominal pain Status: Acute (2) Melena Status: Acute Date of Service: Jun 19, 2024 Billing Provider: OLGA HUANG MD Common Visit Codes: [id number] INP/OBS CARE (MOD) OLGA HUANG MD Jun 19, 2024 08:06
[2024-06-19] MEDS: D5W/LACTATED RINGERS 1,000 ML IV ONE (08:48)
[2024-06-19 09:39] LABS: Basophils # (auto) 0 10 ^3/uL (0-0.2); Basophils % (auto) 0.1 % (0.0-2.0); Eosinophils # (auto) 0.3 10 ^3/uL (0-0.8); Eosinophils % (auto) 2.7 % (0.0-7.0); Hematocrit 42.3 % (41.0-53.0); Hemoglobin 14.2 g/dL (13.5-17.5); Lymphocytes # (auto) 0.5 10 ^3/uL (0.4-5.4); Lymphocytes % (auto) 4.6 % (10.0-50.0); Mean Corpuscular Hemoglobin 30.7 pg (28.0-32.0); Mean Corpuscular Hgb Conc. 33.6 g/dL (32.0-36.0); Mean Corpuscular Volume 91.5 fL (80.0-100.0); Monocytes # (auto) 0.5 10 ^3/uL (0-1.3); Neutrophils # (auto) 9.5 10 ^3/uL (1.6-8.6); Neutrophils % (auto) 87.6 % (37.0-80.0); Platelet Count (auto) 231 10^3/uL (140-450); Red Blood Cells 4.62 10^6/uL (4.5-5.90); Red Cell Distribution Width 13.5 % (11.8-14.3); White Blood Cell 10.9 10^3/uL (4.4-10.8)
[2024-06-19] MEDS: PANTOPRAZOLE 40 MG/10 ML VIAL INJ IV SCH (10:06)
[2024-06-19] MEDS ORDERED: ALFU1TAB15 ×2 (13:12)
[2024-06-19] MEDS ORDERED: HYD25TP ×2 (13:12)
[2024-06-19] MEDS ORDERED: TAMS1CAP25 ×2 (13:12)
[2024-06-19] MEDS ORDERED: FIN5T ×2 (13:12)
[2024-06-19] MEDS ORDERED: LOS25T ×2 (13:12)
[2024-06-19] MEDS ORDERED: TRAZ-227 ×2 (13:12)
[2024-06-19] MEDS ORDERED: SIMV10TA20 ×2 (13:12)
[2024-06-19] MEDS: SODIUM CHLOR 0.9% PF (SALINE LOCK) 10ML VIAL/SYR IV SCH (14:00)
--- NOTE | 2024-06-19 15:17 | DVHINCON2 ---
Date of service: Jun 19, [address] Luo Reason for Consultation Diarrhea GIbleed History of Present Illness This 59-year-old male presented to the emergency room with the complaints of abdominal pain in the epigastrium and had about 10-12 bowel movements apparently in the last 24 to was had some with some blood With some cramps in the both lower abdomen which is better now No hematemesis no melena History of any unusual food ingestion Past Medical History Unremarkable Past Surgical History None Family History: No significant family history Family History Unremarkable Social History Denies smoking or drinking Allergies: Coded Allergies: NO KNOWN ALLERGIES (Unverified , 12/28/14) Home Meds Active Scripts Albuterol Sulfate (Albuterol Sulfate Hfa) 108 Mcg/Act Aer, 108 MCG IN TID, #90 AER Prov:EMA QUARLES 02/27/23 Methylprednisolone (Medrol Dosepak) 4 Mg David, 4 MG PO UD, #21 TAB UAD Prov:EMA QUARLES 02/27/23 Benzonatate (Benzonatate) 200 Mg Cap, 1 CAP PO TID, #30 CAP Prov:EMA QUARLES 02/27/23 Metoclopramide Hcl (Reglan) 10 Mg Tab, 10 MG PO TIDP PRN for 10 Days, #30 TAB Prov:BERNABE GARCIA DO 08/23/22 Reported Medications Hydrocortone (Hydrocortisone 2.5%) 1 Applic Ap 06/19/24 Alfuzosin Hydrochloride (ALFUZOSIN HCL ER) 10 Mg Tab, 1 DAILY 06/19/24 Finasteride (Finasteride) 5 Mg Tab, 1 DAILY 06/19/24 Tamsulosin HCl (Tamsulosin Hydrochloride) 0.4 Mg Cap 06/19/24 Trazodone Hcl (Trazodone Hcl) 50 Mg Tab, 1 06/19/24 Simvastatin (Simvastatin) 10 Mg Tab, 1 06/19/24 Losartan Potassium (Losartan Potassium) 25 Mg Tab, 1 DAILY 06/19/24 Current Medications Current Medications Medications (Trade) Dose Ordered Sig/Rae Route PRN Reason Start Time Stop Time Status Last Admin Pantoprazole Sodium (Protonix) 40 mg BID IV 06/19/24 10:00 06/19/24 10:06 Sodium Chloride (Saline Lock Ns) 10 ml Q8HR IV 06/19/24 14:00 Docusate Sodium (Colace Capsule) 100 mg BIDPRN PRN PO FOR CONSTIPATION 06/19/24 08:00 Acetaminophen (Tylenol Tablet) 650 mg Q6HP PRN PO PAIN SCALE 1-3 OR TEMP>100.4 06/19/24 08:00 Acetaminophen/ Hydrocodone Bitart ([place] 5/325MG Tab) 1 tab Q4HP PRN PO MODERATE PAIN (4-6 PAIN SCALE) 06/19/24 08:00 Ondansetron HCl (Zofran) 4 mg Q4HP PRN IV NAUSEA / VOMITING 06/19/24 08:00 Albuterol (Ventolin Medneb) 2.5 mg Q6H PRN NEB SHORTNESS OF BREATH 06/19/24 08:00 Review of Systems Noncontributory Vital Signs Vital Signs Date Time Temp Pulse Resp B/P (MAP) Pulse Ox O2 Delivery O2 Flow Rate FiO2 06/19/24 14:37 98.3 68 16 115/59 93 0.0 98.3 06/19/24 08:35 Room Air* 21 Physical Exam Moderately built and nourished male in no acute distress HEENT examination no pallor or icterus Lungs clear Cardiovascular unremarkable Abdomen soft minimal tenderness in both lower quadrants No rigidity no guarding no masses Extremities no edema Neurological grossly intact Labs/Diagnostic Data Labs Test 06/19/24 08:51 06/19/24 03:37 Range/Units White Blood Count 10.9 H 4.4-10.8 10^3/uL Red Blood Count 4.62 4.5-5.90 10^6/uL Hemoglobin 14.2 13.5-17.5 g/dL Hematocrit 42.3 41.0-53.0 % Mean Corpuscular Volume 91.5 80.0-100.0 fL Mean Corpuscular Hemoglobin 30.7 28.0-32.0 pg Mean Corpuscular Hemoglobin Concent 33.6 32.0-36.0 g/dL Red Cell Distribution Width 13.5 11.8-14.3 % Platelet Count 231 140-450 10^3/uL Mean Platelet Volume 7.1 6.9-10.8 fL Neutrophils (%) (Auto) 87.6 H 37.0-80.0 % Lymphocytes (%) (Auto) 4.6 L 10.0-50.0 % Monocytes (%) (Auto) 5.0 0.0-12.0 % Eosinophils (%) (Auto) 2.7 0.0-7.0 % Basophils (%) (Auto) 0.1 0.0-2.0 % Neutrophils # (Auto) 9.5 H 1.6-8.6 10 ^3/uL Lymphocytes # (Auto) 0.5 0.4-5.4 10 ^3/uL Monocytes # (Auto) 0.5 0-1.3 10 ^3/uL Eosinophils # (Auto) 0.3 0-0.8 10 ^3/uL Basophils # (Auto) 0 0-0.2 10 ^3/uL Nucleated Red Blood Cells 0.0 % Prothrombin Time 10.5 9.3-11.8 sec Prothrombin Time INR 0.99 0.9-1.15 Sodium Level 137 136-145 mmol/L Potassium Level 3.8 3.5-5.1 mmol/L Chloride Level 106 98-107 mmol/L Carbon Dioxide Level 23 20-31 mmol/L Anion Gap 8 5-15 Blood Urea Nitrogen 11 9-23 mg/dL Creatinine 1.05 0.700-1.30 mg/dL Glomerular Filtration Rate Calc 79 >90 mL/min BUN/Creatinine Ratio 10.5 10.0-20.0 Serum Glucose 114 H 74-106 mg/dL Lactic Acid Level 1.5 0.4-2.0 mmol/L Calcium Level 9.5 8.7-10.4 mg/dL Assessment 63-year-old with complaints of abdominal pain diarrhea some blood in the stool hemoglobin is stable abdomen is soft with mild tenderness in the left lower quadrant and slightly also in the right lower quadrant No hematemesis no unusual food ingestion no history of any fever or other systemic symptoms Hemoglobin is stable white count is just borderline high Clinical impression Possible gastroenteritis Possible diverticulitis though less likely Possible ulcer disease or other pathology the much less likely Plan/Recommendation We will recommend stool studies for O&P C&S and C diff Follow hemoglobin close Clear Liquids and see the response In case symptoms worsen may need further evaluations necessary but for the time being supportive treatment with PPIs monitor the hemoglobin and see the response Thank you Dr. Luu Plan discussed with: Patient LIDIA LUU MD Jun 19, 2024 15:17
[2024-06-19 16:38] LABS: Basophils # (auto) 0 10 ^3/uL (0-0.2); Basophils % (auto) 0.2 % (0.0-2.0); Eosinophils # (auto) 0.4 10 ^3/uL (0-0.8); Eosinophils % (auto) 5.2 % (0.0-7.0); Hematocrit 40.8 % (41.0-53.0); Hemoglobin 13.5 g/dL (13.5-17.5); Lymphocytes # (auto) 0.9 10 ^3/uL (0.4-5.4); Lymphocytes % (auto) 13.3 % (10.0-50.0); Mean Corpuscular Hemoglobin 30.3 pg (28.0-32.0); Mean Corpuscular Volume 91.6 fL (80.0-100.0); Monocytes # (auto) 0.6 10 ^3/uL (0-1.3); Monocytes % (auto) 8.1 % (0.0-12.0); Neutrophils # (auto) 5.1 10 ^3/uL (1.6-8.6); Neutrophils % (auto) 73.2 % (37.0-80.0); Platelet Count (auto) 219 10^3/uL (140-450); Red Blood Cells 4.46 10^6/uL (4.5-5.90); Red Cell Distribution Width 13.3 % (11.8-14.3)
[2024-06-20 00:29] LABS: Basophils # (auto) 0 10 ^3/uL (0-0.2); Basophils % (auto) 0.5 % (0.0-2.0); Eosinophils # (auto) 0.4 10 ^3/uL (0-0.8); Eosinophils % (auto) 7.5 % (0.0-7.0); Hematocrit 40.4 % (41.0-53.0); Hemoglobin 13.5 g/dL (13.5-17.5); Lymphocytes # (auto) 1.2 10 ^3/uL (0.4-5.4); Lymphocytes % (auto) 24.5 % (10.0-50.0); Mean Corpuscular Hemoglobin 30.6 pg (28.0-32.0); Mean Corpuscular Hgb Conc. 33.3 g/dL (32.0-36.0); Mean Corpuscular Volume 91.9 fL (80.0-100.0); Monocytes # (auto) 0.5 10 ^3/uL (0-1.3); Monocytes % (auto) 10.6 % (0.0-12.0); Neutrophils # (auto) 2.8 10 ^3/uL (1.6-8.6); Neutrophils % (auto) 56.9 % (37.0-80.0); Platelet Count (auto) 220 10^3/uL (140-450); Red Cell Distribution Width 13.3 % (11.8-14.3); White Blood Cell 4.9 10^3/uL (4.4-10.8)
[2024-06-20 06:26] LABS: Basophils # (auto) 0 10 ^3/uL (0-0.2); Basophils % (auto) 0.5 % (0.0-2.0); Eosinophils # (auto) 0.3 10 ^3/uL (0-0.8); Eosinophils % (auto) 7.3 % (0.0-7.0); Hematocrit 41.2 % (41.0-53.0); Hemoglobin 13.7 g/dL (13.5-17.5); Lymphocytes % (auto) 23.3 % (10.0-50.0); Mean Corpuscular Hemoglobin 30.4 pg (28.0-32.0); Mean Corpuscular Hgb Conc. 33.2 g/dL (32.0-36.0); Mean Corpuscular Volume 91.5 fL (80.0-100.0); Monocytes # (auto) 0.5 10 ^3/uL (0-1.3); Neutrophils # (auto) 2.5 10 ^3/uL (1.6-8.6); Neutrophils % (auto) 57.9 % (37.0-80.0); Platelet Count (auto) 207 10^3/uL (140-450); Red Blood Cells 4.51 10^6/uL (4.5-5.90); Red Cell Distribution Width 13.5 % (11.8-14.3); White Blood Cell 4.3 10^3/uL (4.4-10.8)
[2024-06-20 07:00] LABS: Alanine Aminotransferase 40 U/L (7-40); Albumin 3.9 g/dL (3.2-4.8); Anion Gap 6 (5-15); Aspartate Aminotransferase 22 U/L (13-40); Calcium 8.8 mg/dL (8.7-10.4); Carbon Dioxide 27 mmol/L (20-31); Glucose 86 mg/dL (74-106); Sodium 141 mmol/L (136-145)
[2024-06-20 07:01] LABS: Bilirubin, Total 0.4 mg/dL (0.2-1.0)
[2024-06-20 07:03] LABS: Alkaline Phosphatase 36 U/L (46-116); Blood Urea Nitrogen 7 mg/dL (9-23); Chloride 108 mmol/L (98-107)
[2024-06-20 08:00] VITALS: PULSE 65; RESP 16
[2024-06-20 09:00] VITALS: BP 113/59; PULSE 65; RESP 16; TEMP 98.6; O2SAT 97
[2024-06-20 11:39] VITALS: O2SAT 97
[2024-06-20 13:23] VITALS: BP 146/80; PULSE 62; RESP 16; TEMP 98.9; O2SAT 97
--- NOTE | 2024-06-20 15:07 | DVHPN2 ---
Progress Note - Dictate Date Seen: Jun 20, 2024 Medical Necessity Reason Pt with a Central, PICC or Fol: No Subjective Patient continuing to do better no further bleeding or nausea vomiting or GI symptoms excessive minimal gas pains vital signs Vital Sign Date Time Temp Pulse Resp B/P (MAP) Pulse Ox O2 Delivery O2 Flow Rate FiO2 06/20/24 13:23 98.9 62 16 146/80 (102) 97 98.9 06/20/24 11:39 Room Air* 0 21 Total Intake and Output 06/19/24 06/19/24 06/20/24 15:00 23:00 07:00 Intake Total 1400 ml Balance 1400 ml medications Current Medications Medications Dose Ordered Sig/Rae Route Start Time Stop Time Status Last Admin Dose Admin Pantoprazole Sodium 40 mg BID IV 06/19/24 10:00 06/20/24 09:14 40 MG Sodium Chloride 10 ml Q8HR IV 06/19/24 14:00 06/20/24 06:10 10 ML Docusate Sodium 100 mg BIDPRN PRN PO 06/19/24 08:00 Acetaminophen 650 mg Q6HP PRN PO 06/19/24 08:00 Acetaminophen/ Hydrocodone Bitart 1 tab Q4HP PRN PO 06/19/24 08:00 Ondansetron HCl 4 mg Q4HP PRN IV 06/19/24 08:00 Albuterol 2.5 mg Q6H PRN NEB 06/19/24 08:00 objective Abdomen is soft very minimal tenderness in both lower quadrants no rigidity no guarding masses normal laboratory and microbiology Laboratory Tests 06/20/24 05:57 Test 06/20/24 05:57 Range/Units Serum Glucose 86 74-106 mg/dL Assessment/Plan 63-year-old with complaints of abdominal pain diarrhea some blood in the stool hemoglobin is stable abdomen is soft with mild tenderness in the left lower quadrant and slightly also in the right lower quadrant No hematemesis no unusual food ingestion no history of any fever or other systemic symptoms Hemoglobin is stable Clinical impression Possible gastroenteritis Possible diverticulitis though less likely Patient is clinically much better and no need for any other GI endoscopic workup will recommend increase the diet and can be discharged if tolerating diet well Thank you Dr. Luu Plan discussed with: Patient LIDIA LUU MD Jun 20, 2024 15:07
--- NOTE | 2024-06-20 15:42 | DVHDS2 ---
Discharge Summary Date of Admission Jun 19, 2024 at 07:59 Date of Discharge: Jun 20, 2024 Labs/Diagnostic Data: Laboratory Results Test 06/20/24 05:57 06/19/24 03:37 White Blood Count 4.3 10^3/uL (4.4-10.8) Red Blood Count 4.51 10^6/uL (4.5-5.90) Hemoglobin 13.7 g/dL (13.5-17.5) Hematocrit 41.2 % (41.0-53.0) Mean Corpuscular Volume 91.5 fL (80.0-100.0) Mean Corpuscular Hemoglobin 30.4 pg (28.0-32.0) Mean Corpuscular Hemoglobin Concent 33.2 g/dL (32.0-36.0) Red Cell Distribution Width 13.5 % (11.8-14.3) Platelet Count 207 10^3/uL (140-450) Mean Platelet Volume 7.1 fL (6.9-10.8) Neutrophils (%) (Auto) 57.9 % (37.0-80.0) Lymphocytes (%) (Auto) 23.3 % (10.0-50.0) Monocytes (%) (Auto) 11.0 % (0.0-12.0) Eosinophils (%) (Auto) 7.3 % (0.0-7.0) Basophils (%) (Auto) 0.5 % (0.0-2.0) Neutrophils # (Auto) 2.5 10 ^3/uL (1.6-8.6) Lymphocytes # (Auto) 1.0 10 ^3/uL (0.4-5.4) Monocytes # (Auto) 0.5 10 ^3/uL (0-1.3) Eosinophils # (Auto) 0.3 10 ^3/uL (0-0.8) Basophils # (Auto) 0 10 ^3/uL (0-0.2) Nucleated Red Blood Cells 0.0 % Sodium Level 141 mmol/L (136-145) Potassium Level 4.0 mmol/L (3.5-5.1) Chloride Level 108 mmol/L (98-107) Carbon Dioxide Level 27 mmol/L (20-31) Anion Gap 6 (5-15) Blood Urea Nitrogen 7 mg/dL (9-23) Creatinine 1.17 mg/dL (0.700-1.30) Glomerular Filtration Rate Calc 70 mL/min (>90) BUN/Creatinine Ratio 6.0 (10.0-20.0) Serum Glucose 86 mg/dL (74-106) Calcium Level 8.8 mg/dL (8.7-10.4) Total Bilirubin 0.4 mg/dL (0.2-1.0) Aspartate Amino Transferase (AST) 22 U/L (13-40) Alanine Aminotransferase (ALT) 40 U/L (7-40) Alkaline Phosphatase 36 U/L (46-116) Total Protein 6.0 g/dL (5.7-8.2) Albumin 3.9 g/dL (3.2-4.8) Prothrombin Time 10.5 sec (9.3-11.8) Prothrombin Time INR 0.99 (0.9-1.15) Lactic Acid Level 1.5 mmol/L (0.4-2.0) Other Laboratory Tests 06/20/24 05:57 Brief Hx & Hospital Course: 63-year-old male with known history of hypertension, dyslipidemia, BPH initially planned to has been the epigastric pain and diarrhea associated with some bloody stools. Eventually patient was diagnosed with a gastroenteritis. Patient also complaining of blood pressure running between 90s to 96. Patient's home medication reviewed which include losartan which was discontinued. Patient is currently diarrhea has been resolved GI has cleared the patient to be discharged. Constipation tolerates food patient can be discharged with close follow up as an outpatient with the PCP and GI. Condition at Discharge: Stable Final Diagnosis/Problems List 1. Hypotension currently asymptomatic, discontinue losartan 2. Epigastric pain with diarrhea, suspect gastroenteritis currently resolved 3. Hypertension next 4. Dyslipidemia 5. BPH Discharge Disposition: Home SNF Discharge Will this Physician continue t: No Discharge Instruct/Medications Diet: Cardiac 2g Na,low cholest Activity: No Restrictions, As Tolerated Follow Up/Referral: Please follow up with PCP in one week Follow up with Dr. Elda MAY in one week Medications: Resume home medication, hold losartan as patient has borderline systolic blood pressure. Discharge Statement: "Patient was advised to return to the ER or call 911 if any headaches, dizziness, shortness of breath, chest pain, abdominal pain, bleeding, fevers, or worsening of medical condition. Patient was counseled about treatment plan, medications, possible side effects, patientverbalized understanding. All questions were answered to the best of my ability. This discharge took greater then 30 minutes in planning, reviewing documentation, counseling the patient, and discussing with other team members." ASSESSMENT ASSESSMENT Assessment 1. Hypotension currently asymptomatic, discontinue losartan 2. Epigastric pain with diarrhea, suspect gastroenteritis currently resolved 3. Hypertension next 4. Dyslipidemia 5. BPH INDIGO LAMA MD Jun 20, 2024 15:42
[2024-06-20 16:00] VITALS: BP_SYST 127; BP_SYST 131; BP_SYST 138; BP_DIAS 63; BP_DIAS 68; BP_DIAS 71; PULSE 65; PULSE 66; PULSE 67
[2024-06-20 16:51] VITALS: BP 122/58; PULSE 63; RESP 16; TEMP 98.8; O2SAT 98
== END 2024-06-20 17:30 | disposition home or self-care (01) | DRG 392 ==
LOC: ER 03:12 → OVERFLOW 07:59 → EAST 13:04
PROVIDERS: ADMIT Internal Medicine; ATTEND Internal Medicine
DX: K52.9 Noninfective gastroenteritis and colitis, unspecified (principal); K92.1 Melena; N40.0 Benign prostatic hyperplasia without lower urinary tract symptoms; E78.5 Hyperlipidemia, unspecified; I95.9 Hypotension, unspecified; I10 Essential (primary) hypertension; F41.9 Anxiety disorder, unspecified; K59.00 Constipation, unspecified
CPT/HCPCS: 36415; 74177; 80048; 80053; 83605; 85025; 85610; 86850; 86900; 86901; 99291; G0378; J2405; J2470

== ENCOUNTER 2024-07-19 16:33 | Inpatient (IN) | payer OTHER ==
[~2024-07-19] VITALS: Ht 160 cm; Wt 57.3 kg
[~2024-07-19 16:33] MED LIST changes: +ALFU1TAB15; +FIN5T; +HYD25TP; +SIMV10TA20; +TAMS1CAP25; +TRAZ-227
--- NOTE | 2024-07-19 17:04 | ED.PDOC ---
HPI (NEURO) HPI Comments HPI: Poor Historian. 63 y.o female presents to the ED for a chief complaint of a generalized headache associated with a near syncopal episode and dizziness that started a couple hours ago. Patent reports symptoms came onset spontaneously and denies any head trauma, injuries, falls or syncopal episodes. Patient denies chest pain, SOB, focal weaknesses, speech changes or vision change. patient took all his medication today. Vitals BP:131/82 HR: 76 Temp: 98F RR: 16 SPO2: 96 % RA Past medical history: HTN and hyperlipidemia Past surgical history: Right Ear due to accident Allergies: Denies REVIEW OF SYSTEMS: CONSTITUTIONAL: Denies acute: fever, diaphoresis, chills, HEAD: Denies acute: photophobia Eyes: Denies acute: Double vision, vision loss, eye pain, eye discharge. EARS: Denies acute: tinnitus, hearing loss, ear discharge, ear pain, THROAT: Denies acute: sore throat, swelling, difficulty swallowing , pain with swallowing, change in voice. NECK: Denies acute: neck pain, neck swelling, stiff neck. HEART: Denies acute : chest pain, palpitations, LUNGS: Denies acute: SOB, wheezing, cough, hemoptysis ABDOMEN: Denies acute: abdominal pain, Nausea, Vomiting, diarrhea, melena , hematemesis, hematochezia SKIN: Denies acute: rash, redness, lesions, itchiness. EXTREMITIES: Denies acute: calf pain, numbness, tingling, weakness, denies pain in extremity. Denies acute: Low back pain. Neuro: Denies acute: focal neurological deficit, motor or sensory focal neurological deficit, tremors, seizure like activity, confusion, change in mental status, loss of bowel or bladder function, cauda equina like symptoms. : Denies acute: dysuria, hematuria, flank pain, increase in urinary frequency. PSYCH: Denies acute: hallucination, suicidal ideation, homicidal ideation. PHYSICAL EXAM: General: no acute distress, awake and alert. Head: normocephalic, atraumatic. Neck: supple, trachea is midline, no swelling. Evaluation of bilateral mastoids reveals no erythema, no swelling, no tenderness to palpation, no consents for mastoiditis clinically. Throat: Normal phonation. Eyes:, no erythema, no purulent discharge, no proptosis, no icterus. Heart: regular rate, regular rhythm, no significant murmur appreciated. Lungs: no apparent respiratory distress, Able to speak in full sentences. No wheezing, no rhonchi, no crackles. No stridors Clear to auscultation bilaterally. Abdomen: non tender to palpation, non distended, soft, no guarding, no rebound, + bowel sounds. Neuro: Awake, Alert, oriented to name, self, situation, follows commands GCS=15. Speech is normal. Skin: no petechia, no purpura, no cyanosis, non-pale, not jaundice. Lower extremities: --no - Pitting edema no deformity, no focal swelling, no calf TTP. Makes eye contact. moves all four extremities. Face: no apparent facial droop. Ambulating in the ED independently. PERRLA, EOM-I CN 2-12 are grossly intact, No nystagmus. No nuchal rigidity, Kernig's sign, Brudzinski's sign, no meningeal signs. ED COURSE: Time Seen by MD: 16:57 Primary Care Provider: Dr. Murtaza Chung Reviewed Notes: Nurses Notes, Allergies Information Source: Patient Mode of Arrival: Ambulatory Past Medical History PAST MEDICAL HISTORY: Anxiety, High Lipids, HTN Surgical History (Other): ear Family History Family History: Reviewed,noncontributory to illness Social History Smoker: Non-Smoker Alcohol: Denies ETOH Use Drugs: Denies Drug Use Lives In: Home Was a procedure done? Was a procedure done?: No Differential Diagnosis (SZ) Seizure: N/A General Weakness: Anemia, CVA, Dehydration, Dysrhythmia, Electrolyte imbalance, Encephalopathy, Guillain-[place], Hypoglycemia, Hypotension, Hypovolemia, Labyrinthitis, Meniere's disease, Myasthenia gravis, Myocardial infarction, Pulmonary embolus, Renal failure, Repiratory failure, TIA, VBI, Vertigo: central, Vertigo: peripheral, Vestibular neuronitis, Other (Includes but not limited to thyroid disease, encephalopathy, electrolyte abnormality, sepsis, infection, intracranial pathology, drug adverse effects, arrhythmia, kidney insufficiency, ACS, CVA, malignancy, anemia) Headache: Cluster, Migraine, Other (DDX include Sinusitis, migraine, meningitis, hypertension, intracranial mass/bleed, stroke, radiculopathy, vertebrobasillary insufficiency, cephalgia, pseudotumor cerebri, cerebellar ischemia/infarct, carotid stenosis, lacunar infarct, vertebral/carotid artery dissection, hydrocephalus, temporal arteritis, dura venous sinus thrombosis.) X-Ray, Labs, Meds, VS Vital Signs Date Time Temp Pulse Resp B/P (MAP) Pulse Ox O2 Delivery O2 Flow Rate FiO2 07/19/24 21:20 98.0 66 19 140/87 (104) 97 98.0 07/19/24 21:20 66 19 97 Room Air 07/19/24 17:08 76 131/82 86 155/81 07/19/24 17:04 98.0 76 16 131/82 (98) 96 07/19/24 17:01 76 Lab Test 07/19/24 18:58 07/19/24 17:58 07/19/24 17:48 07/19/24 16:55 Range/Units Troponin I High Sensitivity 8 7 </=54 ng/L White Blood Count 7.2 4.4-10.8 10^3/uL Red Blood Count 4.89 4.5-5.90 10^6/uL Hemoglobin 15.1 13.5-17.5 g/dL Hematocrit 44.2 41.0-53.0 % Mean Corpuscular Volume 90.4 80.0-100.0 fL Mean Corpuscular Hemoglobin 30.9 28.0-32.0 pg Mean Corpuscular Hemoglobin Concent 34.1 32.0-36.0 g/dL Red Cell Distribution Width 13.6 11.8-14.3 % Platelet Count 248 140-450 10^3/uL Mean Platelet Volume 6.8 L 6.9-10.8 fL Neutrophils (%) (Auto) 70.7 37.0-80.0 % Lymphocytes (%) (Auto) 15.9 10.0-50.0 % Monocytes (%) (Auto) 7.5 0.0-12.0 % Eosinophils (%) (Auto) 5.6 0.0-7.0 % Basophils (%) (Auto) 0.3 0.0-2.0 % Neutrophils # (Auto) 5.1 1.6-8.6 10 ^3/uL Lymphocytes # (Auto) 1.1 0.4-5.4 10 ^3/uL Monocytes # (Auto) 0.5 0-1.3 10 ^3/uL Eosinophils # (Auto) 0.4 0-0.8 10 ^3/uL Basophils # (Auto) 0 0-0.2 10 ^3/uL Nucleated Red Blood Cells 0.0 % Sodium Level 139 136-145 mmol/L Potassium Level 4.1 3.5-5.1 mmol/L Chloride Level 103 98-107 mmol/L Carbon Dioxide Level 29 20-31 mmol/L Anion Gap 7 5-15 Blood Urea Nitrogen 12 9-23 mg/dL Creatinine 1.19 0.700-1.30 mg/dL Glomerular Filtration Rate Calc 68 >90 mL/min BUN/Creatinine Ratio 10.1 10.0-20.0 Serum Glucose 105 74-106 mg/dL Lactic Acid Level 1.4 0.4-2.0 mmol/L Calcium Level 10.0 8.7-10.4 mg/dL Magnesium Level 2.2 1.6-2.6 mg/dL Total Bilirubin 0.3 0.2-1.0 mg/dL Aspartate Amino Transferase (AST) 33 13-40 U/L Alanine Aminotransferase (ALT) 53 H 7-40 U/L Alkaline Phosphatase 46 46-116 U/L Total Protein 7.4 5.7-8.2 g/dL Albumin 4.8 3.2-4.8 g/dL Urine Color Colorless Yellow Urine Clarity Clear Clear Urine pH 5.5 5.0-9.0 Urine Specific [place] 1.006 1.001-1.035 Urine Protein Negative Negative Urine Ketones Negative Negative Urine Blood Negative Negative /uL Urine Nitrite Negative Negative Urine Bilirubin Negative Negative Urine Urobilinogen Normal Negative mg/dL Urine Leukocyte Esterase Negative Negative /uL Urine RBC <1 0 - 3 /hpf Urine Microscopic WBC 0-3 /HPF Urine Squamous Epithelial Cells None seen <5 /hpf Urine Bacteria None seen None Seen /hpf Urine Glucose Normal Normal mg/dL POC Glucose 137 H 70-106 mg/dl Current Medications Medications (Trade) Dose Ordered Sig/Rae Route Start Time Stop Time Status Last Admin Sodium Chloride 1,000 ml @ 1,000 mls/hr Q1H ONCE IV 07/19/24 20:45 07/19/24 21:44 DC 07/19/24 21:17 Piperacillin Sod/ Tazobactam Sod 100 ml @ 100 mls/hr ONCE ONCE IV 07/19/24 22:30 07/19/24 23:29 07/19/24 22:[address] [address] Ph: [phone] DIAGNOSTIC IMAGING Diagnostic Imaging Report : [id number] Signed PATIENT: FILOMENA CHUNG ACCT: [id number] UNIT: [id number] : 1960 LOC: ER ROOM / BED: / AGE / SEX: 63 / M ADM STATUS: REG ER SERVICE 1711 ORDERING PHYSICIAN: LAYLA CLEMENS DO PROCEDURE(s): HWOCT - HEAD WITHOUT CONTRAST REASON: dizzy ORDER NUMBER(s): [id number], ACCESSION NUMBER(s): [id number] EXAM: CT HEAD WITHOUT CONTRAST INDICATION: dizzy TECHNIQUE: CT of the head without intravenous contrast. Radiation Dose Information: CT Dose: CTDI volume is 54.24 mGy. Dose-length product is 960.54 mGy*cm The dose indicators for CT are the volume Computed Tomography (CT) Dose Index (CTDIvol) and the Dose Length Product (DLP), and are measured in units of mGy and mGy-cm, respectively. These indicators are not patient dose, but values generated from the CT scanner acquisition factors. The report includes radiation exposure data for exposures received during this examination. COMPARISON: CT HEAD WITHOUT CONTRAST on DOS: 06/17/24, CT STROKE CTH on DOS: 08/23/22 FINDINGS: There is no evidence of acute intracranial hemorrhage, extra-axial collection, mass effect, midline shift, herniation or hydrocephalus. The ventricles, sulci and cisterns are age appropriate. The almanza-white differentiation is intact. Patchy periventricular and subcortical white matter hypoattenuation is nonspeci fic but may be related to small vessel ischemic disease. The visualized paranasal sinuses and 16 by 9 mm fluid collection in the right mastoid air cells just above the external auditory canal adjacent to the semicircular canals.. The surrounding soft tissues and osseous structures are unremarkable. IMPRESSION: 1. 16 x 19 mm fluid collection in the right mastoid air cells above the external auditory canal may represent infection from mastoidectomy or cholesteatoma. This appears to have developed since June 17, 2024. 2. No acute intracranial hemorrhage 3. No CT findings of territorial ischemia. 4. No significant change from 06/17/2024. CRITICAL FINDINGS Critical Result: CHOLESTEATOMA OR INFECTION RIGHT MASTOID AIR CELLS Findings discussed with Dr Clemens , at 07/19/2024 05:50 PM, and acknowledged receipt and understanding of the findings. ATED BY: LIANE MCFARLAND Jr., DO DICTATED DATE/TIME: 07/19/241758 SIGNED BY: LIANE MCFARLAND Jr., DO SIGNED DATE/TIME: 07/19/241758 CC: [place] [id number] Ph: [phone] DIAGNOSTIC IMAGING Diagnostic Imaging Report : [id number] Signed PATIENT: FILOMENA CHUNG ACCT: [id number] UNIT: [id number] : 1960 LOC: ER ROOM / BED: / AGE / SEX: 63 / M ADM STATUS: REG ER SERVICE 10 ORDERING PHYSICIAN: LAYLA CLEMENS DO PROCEDURE(s): CXRP - CHEST PORTABLE REASON: dizzy ORDER NUMBER(s): [id number], ACCESSION NUMBER(s): [id number] CHEST RADIOGRAPH Indication: dizzy Technique: Single frontal view of the chest was obtained Comparison: XY CHEST PORTABLE on DOS: 09/14/23, XY CHEST XRAY 1 VIEW on DOS: 08/23/22 FINDINGS: Lines and Tubes: None Lungs: No focal consolidation. Pleura: No effusion. No pneumothorax. Cardiomediastinal contours: Unremarkable Bones: No acute osseous abnormality. IMPRESSION: 1. No acute cardiopulmonary disease. 2. No significant change from 09/14/2023. ATED BY: LIANE MCFARLAND Jr., DO DICTATED DATE/TIME: 07/19/241742 SIGNED BY: LIANE MCFARLAND Jr., DO SIGNED DATE/TIME: 07/19/241742 CC: Time of 1ST Reevaluation: 17:00 Reevaluation 1ST: Unchanged Patient Education/Counseling: Diagnosis, Treatment Family Education/Counseling: No Family Present Comments Patient presented with the above HPI.---generalized weakness/headache/diz ziness---workup was initiated. patient was found with the above mentioned diagnosis. the following medications were ordered: please refer to order lists of meds and tests obtained by myself Dr. Clemens. Patient ED course and VS have been stabilized. Patient has been reassessed in the ED and remained in a stable condition. Pertinent incidental findings were discussed with the patient and/or family. Patient/family voices understanding and is agreeable with plan. Patient has been observed in the ED adequate length of time to insure improvement/stability. Escalation of care considered: Consideration of escalation to observation or admission Patient was ADMITTED to the medicine team for further evaluation and treatment of their presentation. Orthostatics were obtained and were unremarkable. Patient ambulating independently. No focal deficits. CT scan findings shows some incidental findings that are not correlate with his clinical findings. Patient has no pain in the mastoid regions and no swelling and no erythema. Patient denies any acute hearing problems. Patient dizziness is non vertigo-like presentation I discussed the case with the medicine team prior to admitting the patient to see if they are comfortable with admitting the patient here in the absence of ENT consultation. I started the patient on empiric antibiotics just in case. All the reports of any imaging studies that were ordered by myself were reviewed by myself. Departure 1 Departure Time of Disposition: 23:11 Impression: Primary Impression: Dizziness Additional Impressions: Generalized weakness Headache Disposition: ADMITTED INPATIENT Admit to: Tele Condition: Guarded Discharged With: Self Critical Care Note Critical Care Time?: No I personally scribed for LAYLA CLEMENS DO ([email or web address]) on 07/19/24 at 17:03. Electronically submitted by Rachel Brar ([facility]). I personally scribed for LAYLA CLEMENS DO ([email or web address]) on 07/19/24 at 17:15. Electronically submitted by Rachel Brar ([facility]). I personally scribed for LAYLA CLEMENS DO ([email or web address]) on 07/19/24 at 21:25. Electronically submitted by Rachel Brar ([facility] LAYLA CLEMENS DO Jul 19, 2024 17:03
--- NOTE | 2024-07-19 17:09 | ECG ---
[facility] Test Date: 2024-07-19 Test Time: 17:01:36 Pat Name: FILOMENA CHUNG Department: ER Room: Gender: Hydraulic Assembler: : 1960 Requested By: LAYLA CLEMENS Order Number: [id number] Reading MD: Measurements Intervals [place] Rate: 76 P: 11 IA: 108 QRS: 121 QRSD: 134 T: 41 QT: 412 QTc: 464 Interpretive Statements Sinus rhythm Short IA interval RBBB and LPFB Please click the below link to view image of tracing.
--- NOTE | 2024-07-19 17:45 | DVH ---
CHEST RADIOGRAPH Indication: dizzy Technique: Single frontal view of the chest was obtained Comparison: XY CHEST PORTABLE on DOS: 09/14/23, XY CHEST XRAY 1 VIEW on DOS: 08/23/22 FINDINGS: Lines and Tubes: None Lungs: No focal consolidation. Pleura: No effusion. No pneumothorax. Cardiomediastinal contours: Unremarkable Bones: No acute osseous abnormality. IMPRESSION: 1. No acute cardiopulmonary disease. 2. No significant change from 09/14/2023.
[2024-07-19 17:49] LABS: Urine Bacteria None Seen /hpf (None Seen)
--- NOTE | 2024-07-19 18:01 | DVH ---
EXAM: CT HEAD WITHOUT CONTRAST INDICATION: dizzy TECHNIQUE: CT of the head without intravenous contrast. Radiation Dose Information: CT Dose: CTDI volume is 54.24 mGy. Dose-length product is 960.54 mGy*cm The dose indicators for CT are the volume Computed Tomography (CT) Dose Index (CTDIvol) and the Dose Length Product (DLP), and are measured in units of mGy and mGy-cm, respectively. These indicators are not patient dose, but values generated from the CT scanner acquisition factors. The report includes radiation exposure data for exposures received during this examination. COMPARISON: CT HEAD WITHOUT CONTRAST on DOS: 06/17/24, CT STROKE CTH on DOS: 08/23/22 FINDINGS: There is no evidence of acute intracranial hemorrhage, extra-axial collection, mass effect, midline s hift, herniation or hydrocephalus. The ventricles, sulci and cisterns are age appropriate. The almanza-white differentiation is intact. Patchy periventricular and subcortical white matter hypoattenuation is nonspecific but may be related to small vessel ischemic disease. The visualized paranasal sinuses and 16 by 9 mm fluid collection in the right mastoid air cells just above the external auditory canal adjacent to the semicircular canals.. The surrounding soft tissues and osseous structures are unremarkable. IMPRESSION: 1. 16 x 19 mm fluid collection in the right mastoid air cells above the external auditory canal may r epresent infection from mastoidectomy or cholesteatoma. This appears to have developed since June 17, 2024. 2. No acute intracranial hemorrhage 3. No CT findings of territorial ischemia. 4. No significant change from 06/17/2024. CRITICAL FINDINGS Critical Result: CHOLESTEATOMA OR INFECTION RIGHT MASTOID AIR CELLS Findings discussed with Dr Osei , at 07/19/2024 05:50 PM, and acknowledged receipt and understanding of the findings. ..
[2024-07-19 18:27] LABS: Basophils # (auto) 0 10 ^3/uL (0-0.2); Basophils % (auto) 0.3 % (0.0-2.0); Eosinophils # (auto) 0.4 10 ^3/uL (0-0.8); Eosinophils % (auto) 5.6 % (0.0-7.0); Hematocrit 44.2 % (41.0-53.0); Hemoglobin 15.1 g/dL (13.5-17.5); Lymphocytes # (auto) 1.1 10 ^3/uL (0.4-5.4); Lymphocytes % (auto) 15.9 % (10.0-50.0); Mean Corpuscular Hemoglobin 30.9 pg (28.0-32.0); Mean Corpuscular Hgb Conc. 34.1 g/dL (32.0-36.0); Mean Corpuscular Volume 90.4 fL (80.0-100.0); Monocytes # (auto) 0.5 10 ^3/uL (0-1.3); Monocytes % (auto) 7.5 % (0.0-12.0); Neutrophils # (auto) 5.1 10 ^3/uL (1.6-8.6); Neutrophils % (auto) 70.7 % (37.0-80.0); Platelet Count (auto) 248 10^3/uL (140-450); Red Blood Cells 4.89 10^6/uL (4.5-5.90); Red Cell Distribution Width 13.6 % (11.8-14.3); White Blood Cell 7.2 10^3/uL (4.4-10.8)
[2024-07-19 18:34] LABS: Urine Blood Negative /uL (Negative); Urine Clarity Clear (Clear); Urine Color Colorless (Yellow); Urine Protein, UAD Negative (Negative); Urine Specific Gravity 1.006 (1.001-1.035); Urine Squamous Epithelial Cell None Seen /hpf (<5); Urine Urobilinogen Normal (Negative); Urine pH 5.5 (5.0-9.0)
[2024-07-19 18:49] LABS: Albumin 4.8 g/dL (3.2-4.8); Anion Gap 7 (5-15); Aspartate Aminotransferase 33 U/L (13-40); BUN/Creatinine Ratio 10.1 (10.0-20.0); Bilirubin, Total 0.3 mg/dL (0.2-1.0); Blood Urea Nitrogen 12 mg/dL (9-23); Carbon Dioxide 29 mmol/L (20-31); Chloride 103 mmol/L (98-107); Glucose 105 mg/dL (74-106); Magnesium 2.2 mg/dL (1.6-2.6); Potassium 4.1 mmol/L (3.5-5.1); Sodium 139 mmol/L (136-145); Total Protein 7.4 g/dL (5.7-8.2)
[2024-07-19 18:54] LABS: Alanine Aminotransferase 53 U/L (7-40); Alkaline Phosphatase 46 U/L (46-116)
[2024-07-19] MEDS: SODIUM CHLORIDE 0.9% 1,000 ML IV ONE (21:17)
[2024-07-19] MEDS ORDERED: OFLOXACIN OTIC(EAR) 0.3 % DROP 5ML EACH EAR SCH (22:30)
[2024-07-19] MEDS ORDERED: PIPERACILLIN-TAZOB 3.375GM 100 ML IV SCH (22:30)
[2024-07-19] MEDS ORDERED: VANCOMYCIN PER PHARMACY 0 MG IV SCH ×2 (22:30)
[2024-07-19] MEDS: PIPERACILLIN-TAZOB 3.375GM 100 ML IV ONE (22:59)
--- NOTE | 2024-07-19 23:29 | DVH ---
INDICATION: mastoidiits EXAM DATE: 07/19/2024 05:22 PM COMPARISON: None TECHNIQUE: CT of the IAC without intravenous contrast. RADIATION DOSE: CTDIvol: 54.24 mGy, DLP: 960.54 mGy*cm FINDINGS: There is severe right mastoid sinus disease right mastoid antrum is filled with fluid. No normal ossi cles are seen in the right middle ear. Internal auditory canals are normal bilaterally. Left middle ear is normal left mastoid process is no rmal. Right scutum is eroded. Left scutum is unremarkable.. There is fluid in the right Prussak's space IMPRESSION: 1. Severe right mastoid disease with apparent erosion of the ossicles of the right middle ear and ero john of the right scutum and there is fluid in the right prussak space
--- NOTE | 2024-07-19 23:52 | DVHHPRES ---
History of Present Illness Resident Creating Document: SUSIE BENJAMIN Reason for Visit: dizziness History of Present Illness A 63-year-old male with a past medical history of hypertension and hyperlipidemia presents to the ED with complaints of a generalized headache, near-syncope, and dizziness that started a few hours ago. The patient reports the symptoms started spontaneously and denies any head trauma, injuries, falls, or previous syncopal episodes. He denies chest pain, shortness of breath, focal weakness, speech changes, or vision changes. He states that he took all his medications today. Patient states hearing loss in the left ear Notably, the patient has a history of a right ear accident. His current symptoms prompted imaging, which revealed severe right mastoid disease with erosion of the ossicles and right scutum and fluid in the right Prussaks space. A prior imaging study on June 17 did not demonstrate this collection, confirming that this is a new finding. Given the absence of an ENT service at this hospital, the patient will require transfer to a higher level of care for further evaluation and management. Past Medical History: Hypertension Hyperlipidemia Past Surgical History: Right ear injury due to an accident Allergies: Denies Review of Systems Constitutional: No: Fever, Chills, Sweats, Weakness, Malaise, Other Eyes: No: Pain, Vision change, Conjunctivae inflammation, Eyelid inflammation, Other, Redness ENT: No: Ear pain, Ear discharge, Nose pain, Nose discharge, Nose congestion, Mouth pain, Mouth swelling, Throat pain, Throat swelling, Other Respiratory: No: Cough, Dry, Shortness of breath, SOB with excertion, Wheezing, Hemoptysis, Pleuritic Pain, Sputum, Wheezing, Other Cardiovascular: No: Chest Pain, Palpitations, Orthopnea, Paroxysmal Noc. Dyspnea, Edema, Lt Headedness, Other Gastrointestinal: No: Nausea, Vomiting, Abdominal Pain, Diarrhea, Constipation, Melena, Hematochezia, Other Genitourinary: No Dysuria, No Frequency, No Incontinence, No Hematuria, No Retention, No Other Musculoskeletal: No: other, neck pain, shoulder pain, arm pain, back pain, hand pain, leg pain, foot pain Skin: No: Rash, Lesions, Jaundice, Bruising, Other Neurological: Weakness; No: Numbness, Incoordination, Change in speech, Confusion, Seizures, Other Allergies: Coded Allergies: NO KNOWN ALLERGIES (Unverified , 12/28/14) Medications Current Medications Medications Dose Ordered Sig/Rae Route Start Time Stop Time Status Last Admin Dose Admin Vancomycin HCl 0 ml @ 0 mls/hr UD IV 07/19/24 22:30 UNV Ofloxacin 10 drop BID EACH EAR 07/19/24 22:30 Vancomycin HCl 0 ml @ 0 mls/hr UD IV 07/19/24 22:30 UNV Piperacillin Sod/ Tazobactam Sod 100 ml @ 100 mls/hr Q6HR IV 07/20/24 06:00 Exam Vital Signs Vital Signs Date Time Temp Pulse Resp B/P (MAP) Pulse Ox O2 Delivery O2 Flow Rate FiO2 07/19/24 21:20 98.0 66 19 140/87 (104) 97 98.0 07/19/24 21:20 Room Air Exam General: No acute distress. HEENT: Necrotic tissue noted in the right ear. microtia in the right wax in the left ear Cardiac: Regular rate and rhythm, no murmurs. Pulmonary: No respiratory distress, clear to auscultation bilaterally. Neurologic: Alert and oriented x3, no focal deficits. Skin: No rashes or lesions. Labs/Xrays Labs Test 07/19/24 18:58 07/19/24 17:58 07/19/24 17:48 07/19/24 16:55 Range/Units Troponin I High Sensitivity 8 </=54 ng/L White Blood Count 7.2 4.4-10.8 10^3/uL Red Blood Count 4.89 4.5-5.90 10^6/uL Hemoglobin 15.1 13.5-17.5 g/dL Hematocrit 44.2 41.0-53.0 % Mean Corpuscular Volume 90.4 80.0-100.0 fL Mean Corpuscular Hemoglobin 30.9 28.0-32.0 pg Mean Corpuscular Hemoglobin Concent 34.1 32.0-36.0 g/dL Red Cell Distribution Width 13.6 11.8-14.3 % Platelet Count 248 140-450 10^3/uL Mean Platelet Volume 6.8 L 6.9-10.8 fL Neutrophils (%) (Auto) 70.7 37.0-80.0 % Lymphocytes (%) (Auto) 15.9 10.0-50.0 % Monocytes (%) (Auto) 7.5 0.0-12.0 % Eosinophils (%) (Auto) 5.6 0.0-7.0 % Basophils (%) (Auto) 0.3 0.0-2.0 % Neutrophils # (Auto) 5.1 1.6-8.6 10 ^3/uL Lymphocytes # (Auto) 1.1 0.4-5.4 10 ^3/uL Monocytes # (Auto) 0.5 0-1.3 10 ^3/uL Eosinophils # (Auto) 0.4 0-0.8 10 ^3/uL Basophils # (Auto) 0 0-0.2 10 ^3/uL Nucleated Red Blood Cells 0.0 % Sodium Level 139 136-145 mmol/L Potassium Level 4.1 3.5-5.1 mmol/L Chloride Level 103 98-107 mmol/L Carbon Dioxide Level 29 20-31 mmol/L Anion Gap 7 5-15 Blood Urea Nitrogen 12 9-23 mg/dL Creatinine 1.19 0.700-1.30 mg/dL Glomerular Filtration Rate Calc 68 >90 mL/min BUN/Creatinine Ratio 10.1 10.0-20.0 Serum Glucose 105 74-106 mg/dL Lactic Acid Level 1.4 0.4-2.0 mmol/L Calcium Level 10.0 8.7-10.4 mg/dL Magnesium Level 2.2 1.6-2.6 mg/dL Total Bilirubin 0.3 0.2-1.0 mg/dL Aspartate Amino Transferase (AST) 33 13-40 U/L Alanine Aminotransferase (ALT) 53 H 7-40 U/L Alkaline Phosphatase 46 46-116 U/L Total Protein 7.4 5.7-8.2 g/dL Albumin 4.8 3.2-4.8 g/dL Urine Color Colorless Yellow Urine Clarity Clear Clear Urine pH 5.5 5.0-9.0 Urine Specific [place] 1.006 1.001-1.035 Urine Protein Negative Negative Urine Ketones Negative Negative Urine Blood Negative Negative /uL Urine Nitrite Negative Negative Urine Bilirubin Negative Negative Urine Urobilinogen Normal Negative mg/dL Urine Leukocyte Esterase Negative Negative /uL Urine RBC <1 0 - 3 /hpf Urine Microscopic WBC 0-3 /HPF Urine Squamous Epithelial Cells None seen <5 /hpf Urine Bacteria None seen None Seen /hpf Urine Glucose Normal Normal mg/dL POC Glucose 137 H 70-106 mg/dl Assessment/Plan Assessment/Plan Imaging: CT Temporal Bone (07/19/2024): Findings: Severe right mastoid sinus disease with fluid in the mastoid antrum. No normal ossicles seen in the right middle ear. Erosion of the right scutum. Fluid present in the right Prussaks space. Impression: Severe right mastoid disease with erosion of ossicles and right scutum. Assessment & Plan: A 63-year-old male with a history of hypertension and hyperlipidemia, presenting with generalized headache, near-syncope, and dizziness. Imaging reveals severe right mastoid disease with erosion of the ossicles and scutum, with a new collection not previously seen on imaging from June 17. #Severe Mastoiditis Severe right mastoid disease with erosion of ossicles and scutum Requires urgent ENT evaluation Transfer to a higher level of care due to the absence of ENT services in this hospital Vanco and Pipwolfgang IV # Dizziness and near-syncopal episode Likely due to mastoiditis #Hypertension #Hyperlipidemia Continue home medications Disposition: Await transfer for ENT evaluation and further management. Case discussed with Dr Pickens Plan discussed with: Patient, Other (rn) My Orders Orders - SUSIE BENJAMIN Procedure Category Date Status Time Temporal Bone Wo CT 07/19/24 Resulted 22:27 Ofloxacin (Otic) PHA 07/19/24 In Process (Floxin Otic) 22:30 Vancomycin Per PHA 07/19/24 Pending Pharmacy 22:30 Piperacillin-Tazob PHA 07/20/24 In Process 3.375gm (Zosyn 3.375g 06:00 Date of Service: Jul 19, 2024 Billing Provider: VELASQUEZ PICKENS MD Common Visit Codes: [id number] INP/OBS CARE (HIGH) Secondary Visit Codes: [id number] CARE PLAN 30 MINUTES SUSIE BENJAMIN Jul 19, 2024 23:52 VELASQUEZ PICKENS MD Jul 20, 2024 10:15
[2024-07-20] MEDS: SODIUM CHLORIDE 0.9% 1,000 ML IV ONE (02:14)
[2024-07-20 03:45] VITALS: PULSE 63; RESP 14; O2SAT 98
[2024-07-20 03:58] VITALS: BP 135/85; PULSE 63; RESP 14; TEMP 98.2; O2SAT 98
[2024-07-20] MEDS ORDERED: PIPERACILLIN-TAZOB 3.375GM 100 ML IV SCH (06:00)
[2024-07-20] MEDS ORDERED: VANCOMYCIN 1GM/250ML KIT 250 ML IV ONE (08:00)
== END 2024-07-20 00:08 | disposition short-term general hospital (02) | DRG 153 ==
LOC: ER 16:33 → OVERFLOW 22:27
PROVIDERS: ATTEND Emergency Medicine
DX: H70.91 Unspecified mastoiditis, right ear (principal); E78.5 Hyperlipidemia, unspecified; I10 Essential (primary) hypertension
CPT/HCPCS: 36415; 70450; 70480; 71045; 80053; 81001; 82962; 83605; 83735; 84484; 85025; 93005; 96365; G0378; J2543

== ENCOUNTER 2024-10-29 21:58 | Emergency (ER) | payer OTHER ==
[~2024-10-29] VITALS: Ht 160 cm; Wt 58.2 kg
[2024-10-29 21:58] VITALS: RESP 16
[2024-10-29 23:40] VITALS: BP 129/66; PULSE 53; TEMP 97.6; O2SAT 99
--- NOTE | 2024-10-30 00:11 | ED.PDOC ---
Eye-HPI HPI Comments s C/C of left eye irritation. Pt states he was working with wood and may have gotten particles stuck in sclera. Noted abrasion to cornea. No bleeding, discharge, or erythema noted. PERRLA. FITZGERALD NKDA Chief Complaint: Eye Problem Time Seen by MD: 22:39 Primary Care Provider: Juliette Allergies: Coded Allergies: NO KNOWN ALLERGIES (Unverified , 12/28/14) Home Meds Active Scripts Moxifloxacin Hydrochloride (Moxifloxacin) 0.5 % Stefano, 1 DROP LEFTEYE TID for 7 Days, #4 ML Prov:JONH RILEY LEAD BURNER 10/30/24 Albuterol Sulfate (Albuterol Sulfate Hfa) 108 Mcg/Act Aer, 108 MCG IN TID, #90 AER Prov:EMA QUARLES 02/27/23 Methylprednisolone (Medrol Dosepak) 4 Mg David, 4 MG PO UD, #21 TAB UAD Prov:EMA QUARLES 02/27/23 Benzonatate (Benzonatate) 200 Mg Cap, 1 CAP PO TID, #30 CAP Prov:EMA QUARLES 02/27/23 Metoclopramide Hcl (Reglan) 10 Mg Tab, 10 MG PO TIDP PRN for 10 Days, #30 TAB Prov:BERNABE GARCIA DO 08/23/22 Reported Medications Hydrocortone (Hydrocortisone 2.5%) 1 Applic Ap 06/19/24 Alfuzosin Hydrochloride (ALFUZOSIN HCL ER) 10 Mg Tab, 1 DAILY 06/19/24 Finasteride (Finasteride) 5 Mg Tab, 1 DAILY 06/19/24 Tamsulosin HCl (Tamsulosin Hydrochloride) 0.4 Mg Cap 06/19/24 Trazodone Hcl (Trazodone Hcl) 50 Mg Tab, 1 06/19/24 Simvastatin (Simvastatin) 10 Mg Tab, 1 06/19/24 Information Source: Patient Mode of Arrival: Ambulatory Past Medical History PAST MEDICAL HISTORY: Anxiety, High Lipids, HTN Family History Family History: Reviewed,noncontributory to illness Social History Smoker: Non-Smoker Alcohol: Denies ETOH Use Drugs: Denies Drug Use Lives In: Home Constitutional: denies: chills, diaphoresis, fatigue, fever, malaise, sweats, weakness, others EENTM: reports: eye pain, eye redness; denies: blurred vision, double vision, ear bleeding, ear discharge, ear drainage, ear pain, ear ringing, hearing loss, mouth pain, mouth swelling, nasal discharge, nose bleeding, nose congestion, nose pain, photophobia, tearing, throat pain, throat swelling, voice changes, others Respiratory: denies: cough, hemoptysis, orthopnea, SOB at rest, shortness of breath, SOB with excertion, stridor, wheezing, others Cardiovascular: denies: chest pain, dizzy spells, diaphoresis, Dyspnea on exertion, edema, irregular heart beat, left arm pain, lightheadedness, palpitations, PND, syncope, others Gastrointestinal: denies: abdomen distended, abdominal pain, blood streaked bowels, constipated, diarrhea, dysphagia, difficulty swallowing, hematemesis, melena, nausea, poor appetite, poor fluid intake, rectal bleeding, rectal pain, vomiting, others Genitourinary: denies: burning, dysuria, flank pain, frequency, hematuria, incontinence, penile discharge, penile sore, pain, testicle pain, testicle swelling, urgency, others Neurological: denies: dizziness, fainting, headache, left sided numbness, left sided weakness, numbness, paresthesia, pre-existing deficit, right sided numbness, right sided weakness, seizure, speech problems, tingling, tremors, weakness, others Musculoskeletal: denies: back pain, gout, joint pain, joint swelling, muscle pain, muscle stiffness, neck pain, others Integumetry: denies: bruises, change in color, change in hair/nails, dryness, laceration, lesions, lumps, rash, wounds, others Allergic/Immunocompromised: denies: Difficulty Healing, Frequent Infections, Hives, Itching, others Hematologic/Lymphatic: denies: anemia, blood clots, easy bleeding, easy bruising, swollen glands, others Endocrine: denies: excessive hunger, excessive sweating, excessive thirst, excessive urination, flushing, intolerance to cold, intolerance to heat, unexplained weight gain, unexplained weight loss, others Psychiatric: denies: anxiety, bipolar disorder, depression, hopeless, panic disorder, schizophrenia, sleepless, suicidal, others Physical Exam General Appearance: No Apparent Distress, Normal HEENT: Normal ENT Inspection, Pharynx Normal, TMs Normal Neck: Full Range of Motion, Non-Tender, Normal, Normal Inspection Respiratory: Chest Non-Tender, Lungs Clear, No Accessory Muscle Use, No Respiratory Distress, Normal Breath Sounds Cardiovascular: No Edema, No JVD, No Murmur, No Gallop, Normal Peripheral Pulses, Regular Rate/Rhythm Breast Exam: Deferred Gastrointestinal: No Organomegaly, Non Tender, No Pulsatile Mass, Normal Bowel Sounds, Soft Genitalia: Deferred Pelvic: Deferred Rectal: Deferred Extremities: No calf tenderness, Normal capillary refill, Normal inspection, Normal range of motion, Non-tender, No pedal edema Musculoskeletal : Apperance: Normal Neurologic: Alert, clinical dietetic technician II-XII nml as Tested, No Motor Deficits, Normal Affect, Normal Mood, No Sensory Deficits Cerebellar Function: Normal Reflexes: Normal Skin: Dry, Normal Color, Warm Lymphatic: No Adenopathy Was a procedure done? Was a procedure done?: Yes Sedation Sedation?: No Informed consent obtained: Yes Other Procedure Procedure Wood's lamp exam left eye Indication Possible foreign body in left eye Anesthetic Tetracaine 0.1% 1 drop Prep Tetracaine and fluorescein Success No noted foreign bodies, ulcerations, or globe penetration. Noted corneal abrasion 6 o'clock position patient tolerated well Informed consent obtained: Yes Risks, benefits, and alternati: Yes EENT DIFF Eye: Corneal Ulceration, Foreign Body-Conjunctiva, Foreign Body-Corneal, Foreign Body-Intraocular, Foreign Body-Lid, Globe Rupture X-Ray, Labs, Meds, VS Vital Signs Date Time Temp Pulse Resp B/P (MAP) Pulse Ox O2 Delivery O2 Flow Rate FiO2 10/29/24 23:40 97.6 53 129/66 (87) 99 97.6 10/29/24 21:58 98.4 61 16 125/77 (93) 97 98.4 Current Medications Medications (Trade) Dose Ordered Sig/Rae Route Start Time Stop Time Status Last Admin Tetracaine HCl (Tetracaine 0.5% Opth Soln) 1 drop ONCE ONCE LEFTEYE 10/30/24 00:15 10/30/24 00:16 DC 10/30/24 00:36 Fluorescein Sodium (Ful-Mary Ann) 1 mg ONCE ONCE LEFTEYE 10/30/24 00:15 10/30/24 00:16 DC 10/30/24 00:36 X-Ray, Labs, Meds, VS Comment See procedure note. Script trial of moxifloxacin. Advised take medications as prescribed side effects discussed. Advised to call in the morning schedule an appointment with an adjunct professor of [employer] history or Ophthalmology for a full slit lamp exam. Advised on ER return precautions patient indicates understanding and agrees with discharge plan of care. Time of 1ST Reevaluation: 22:30 Reevaluation 1ST: Unchanged Time of 2ND Reevaluation: 00:34 Reevaluation 2ND: Improved Patient Education/Counseling: Diagnosis, Treatment, Prognosis, Need For Follow Up Family Education/Counseling: No Family Present Departure 1 Departure Time of Disposition: 00:32 Impression: Primary Impression: Corneal abrasion, left Qualified Codes: S05.02XA - Injury of conjunctiva and corneal abrasion without foreign body, left eye, initial encounter Disposition: HOME / SELF CARE / HOMELESS Condition: Stable e-Prescriptions Moxifloxacin Hydrochloride (Moxifloxacin) 0.5 % Stefano 1 DROP LEFTEYE TID for 7 Days, #4 ML Prov: JONH RILEY 10/30/24 Discharged With: Self Critical Care Note Critical Care Time?: No Stability Stability form required: JONH Arita Oct 30, 2024 00:11
[2024-10-30] MEDS ORDERED: MOXI0.5D9 LEFTEYE (00:34)
[2024-10-30] MEDS: FLUORESCEIN SOD OPTH TEST STRIP LEFTEYE ONE (00:36)
[2024-10-30] MEDS: TETRACAINE HCL 0.5% OPTH(EYE) SOLN 4ML LEFTEYE ONE (00:36)
== END 2024-10-30 01:15 | disposition home or self-care (01) ==
LOC: ER 21:58
DX: S05.02XA Injury of conjunctiva and corneal abrasion without foreign body, left eye, initial encounter (principal); I10 Essential (primary) hypertension; F41.9 Anxiety disorder, unspecified; X58.XXXA Exposure to other specified factors, initial encounter; Y93.89 Activity, other specified; Y92.89 Other specified places as the place of occurrence of the external cause; Y99.8 Other external cause status